=== PATIENT | male | born 1955 | race Caucasian/White ===

== ENCOUNTER 2025-01-12 01:18 | Inpatient (IN) | payer MEDICARE, BC, SELFPAY ==
[2025-01-11 21:43] VITALS: BP 153/76
[2025-01-11] MEDS: TYLENOL 650 MG PO (23:03)
[2025-01-11 23:32] LABS: Hematocrit 42.0 % (39.0-52.0); Hemoglobin 14.3 g/dL (13.0-18.0); Mean Corp Hgb Conc. 34.0 g/dL (33.0-37.0); Mean Corpuscular Volume 91.5 fL (80.0-94.0); Nucleated Red Blood Cells % 0 % (-); Platelet Count 344 10^3/uL (130-400); Red Cell Dist. Width 13.1 % (11.5-14.5)
[2025-01-11 23:48] LABS: ALT (SGPT) 40 U/L (0-50); AST (SGOT) 88 U/L (17-59); Albumin 4.5 g/dl (3.5-5.0); Alkaline Phosphatase 87 U/L (38-126); Blood Urea Nitrogen 20 mg/dl (9-20); Calcium 9.7 mg/dl (8.4-10.2); Carbon Dioxide 26 mmol/L (22-30); Chloride 98 mmol/L (98-107); Glucose 67 mg/dl (70-99); Potassium 4.7 mmol/L (3.5-5.1); Sodium 136 mmol/L (135-145); Total Protein 7.2 g/dl (6.3-8.2); eGFR > 60.00
[2025-01-11 23:50] VITALS: BMI 23.7
[2025-01-11] MEDS: NSS 1000 IV (23:50)
[2025-01-12] MEDS: ZOSYN 100 IV
[2025-01-12 00:09] LABS: C-Reactive Protein > 270.00 mg/L (0.0-10.00)
--- NOTE | 2025-01-12 00:32 | HPS.HSE ---
Family Physician
-
Family Physician: Noemí Pringle
Chief Complaint
-
Open wound infection
History of Present Illness
This is a 69-year-old with past medical history of chronic back pain, cervical and lumbar spinal surgeries, bipolar presenting to the emergency department with swelling and drainage from his left upper extremity.
Patient had a tricep tendon repair done about 2 years ago. He had no issues with this up until about July of this year when he had a drainage and a foreign body emanating from a wound in his elbow. At that time this foreign body was extricated
according to spouse. They were told that he had bursitis but she believes they had retained foreign body. Since this episode the patient has continued to have drainage from that elbow.
Starting on Thursday started having worsening drainage redness and swelling. Suppository on Thursday patient was confused. On Thursday he woke up and essentially slept throughout the day lethargic and altered. He has no subjective fevers at home
but they report that drenching sweats. He denies any trauma. He denies any animal or insect bites. He has been using a simple dressing. Spouse reported that the erythema and size of the left is about double the right. He has no history of DVTs.
Started bactrim yesterday.
In the emergency department he had a Tmax of 102.3, blood pressure was stable at 150/75 with a pulse of 120 and he was satting 98% on room air.
He has a white count of 12.5, normal hemoglobin and platelets. His electrolytes BUN and creatinine were normal.
Medical History
Past Medical History
Past Medical History: Reports Psychiatric (Bipolar)
Past Surgical History: Reports Orthopedic (Cervical spine surgery, lumbar spine surgery, left tricep tendon repair, right total knee arthroplasty, right ankle surgery)
Social History
Tobacco: Non-smoker
Alcohol: Occasional
Drug: None
Personal:
Living: With Family
Employment: Retired
Family History
Family History: Not pertinent
Allergies / Home Medications
Allergies reflects when Allergies were last updated in [facility].
Home Medications with original date entered in [facility]
Allergy/Medication List:
Allergies
Allergy/AdvReac Type Severity Reaction Status Date / Time
hydromorphone (From Dilaudid) Allergy Unknown Verified 01/11/25 21:48
Home Medications
amitriptyline 100 mg tablet 200 mg PO HS 06/21/16
gabapentin 300 mg capsule 300 mg PO HS 06/21/16
hydrocodone 10 mg-acetaminophen 325 mg tablet ([place]point) 1 ea PO QID 06/21/16
methadone 10 mg tablet 10 mg PO DAILY FOR BACK PAIN 06/21/16
tizanidine 2 mg tablet 4 mg PO HS 06/21/16
vilazodone 40 mg tablet (Viibryd) 60 mg PO DAILY 06/21/16
cariprazine 1.5 mg capsule (Vraylar) 1.5 mg PO DAILY 01/12/25
testosterone 1.62 % (20.25 mg/1.25 gram) transdermal gel packet (AndroGel) See Rx Instructions .Route .COMPLEX 01/12/25
Review of Systems
-
History Source: Patient and Family
Constitutional: Reports Chills
EENT: Reports No Symptoms
Respiratory: Reports No Symptoms
Cardiac: Reports No Symptoms
Abdomen/GI: Reports No Symptoms
: Reports No Symptoms
Musculoskeletal: Reports Joint Pain, Joint Swelling and Edema
Skin: Reports Other (Left upper extremity erythema)
Neurological: Reports No Symptoms
Endocrine: Reports No Symptoms
Hematologic/Lymphatic: Reports No Symptoms
Psych: Reports No Symptoms
Physical Exam
Vital Signs
Vital Signs
Temp Pulse Resp BP Pulse Ox
98.6 F 119 16 153/76 96
01/12/25 00:14 01/11/25 21:43 01/11/25 21:43 01/11/25 21:43 01/11/25 21:43
Physical Exam
General: Well Developed, Well Nourished and No Apparent Distress
HEENT: NormoCephalic, Moist mucous membranes and Atraumatic
Respiratory: Clear
Cardiac: S1/S2 and Regular Rhythm; No Murmur or Rub
GI: Soft, Non Tender, Non Distended and Normal Bowel Sounds; No Organomegaly
Rectal: Deferred by Provider
Musculoskeletal: No Clubbing, No Cyanosis and Edema, Left Upper Extremity
Skin: Rash (Extensive erythematous plaque starting from the mid humeral region to the mid forearm on the left upper extremity, diuresed small amount of purulence around the elbow with surrounding excoriation. There is no nodule or collection
consistent with abscess.)
Neuro: AO x 3 and Nonfocal/grossly intact
Psych: Calm
Laboratory Results
-
01/11/25 23:19
01/11/25 23:19
Laboratory Results
Lactic Acid 1.2 mmol/L (0.7-2.0) 01/11/25 23:19
Total Bilirubin 0.6 mg/dl (0.2-1.3) 01/11/25 23:19
AST 88 U/L (17-59) H 01/11/25 23:19
ALT 40 U/L (0-50) 01/11/25 23:19
Alkaline Phosphatase 87 U/L (38-126) 01/11/25 23:19
Data Reviewed
-
Ultrasound: Report Reviewed by me
Lab Data: Labs Reviewed by me
Old Records: Reviewed
Impression/Plan
-
IMPRESSION:
69-year-old with a past medical history of bipolar, chronic pain who presents to the Emergency Department with chronic left upper extremity wound did not appear to be infected. He has sepsis with fever and tachycardia. Lactic acid was not drawn.
Ultrasound pending. No foreign body. Purulent cellulitis.
PLAN:
Purulent cellulitis/abscess with sepsis
- Admit to [facility]
- Blood cultures
- no obvious abscess
- rule out DVT with u/s and eval soft tissue collection
- IV vancomycin, IV cefepime
- wound consult
- Pain control and elevate extremity
- ID consult
Chronic pain
- Continue patient's longstanding methadone
- prn hydrocodone per home regimen
- prn morphine for severe pain
Bipolar
-Continue cariprazine and vilazodone
DVT prophylaxis�Lovenox subcu
CODE STATUS�full code
[2025-01-12] MEDS: VANCOCIN 530 MG IV (01:15)
[2025-01-12 01:19] VITALS: BP 134/74
--- NOTE | 2025-01-12 01:36 | ED.GENMED ---
History of Present Illness
General
Chief Complaint: Skin Problem
Source: patient
Exam Limitations: none
Time Seen by Provider: 01/11/25 22:39
Nursing documentation reviewed up to this point in time: agreed with
History of Present Illness
History of Present Illness:
Note:
CHIEF COMPLAINT(S)
Swollen and draining arm wound.
HISTORY OF PRESENT ILLNESS
The patient is a 69-year-old male with a past surgical history of a tricep tendon repair in March two years ago by Dr. Jones at surgery center. Approximately several months post-surgery, the patient noticed a drainage coming from his arm,
described as a yellowish, greasy fluid. It required intervention and healed over a period of three months. However, recently, the wound has reopened and was significantly swollen, described visually rene to 'a club,' especially notable on a Thursday
night where a considerable amount of fluid was lost. The following day, the swelling appeared to have moved and decreased slightly but was still present. Additionally, the patient reported excessive sleepiness, sleeping from morning until 4 PM,
which is atypical for him. The patient also mentioned experiencing a knot in the arm when flexing it.
SOCIAL DETERMINANTS AFFECTING HEALTH
The patient regularly engages in fishing activities and takes trips that are approximately an hour and fifteen minutes from his home. He appears to have access to transportation for personal activities like fishing trips.
ALLERGIES
Clarithromycin causes a rash. Sulfa drugs cause hallucinations.
PHYSICAL EXAM
General: Alert, no acute distress.
Skin: Warm, dry. Draining abscess on the left elbow. Cellulitis tracking both up to the shoulder and down towards the wrist. Swelling present
Head: Normocephalic, atraumatic.
Neck: Supple, trachea midline.
Eye, Ears, Nose, Mouth, and Throat: Oral mucosa moist.
Cardiovascular: Normal peripheral perfusion, No edema.
Respiratory: Respirations are non-labored.
Gastrointestinal: Abdomen nondistended.
Back: Normal range of motion, Normal alignment.
Musculoskeletal: Normal ROM, normal strength.
Neurological: Alert and oriented to person, place, time, and situation. No focal neurological deficit observed.
Psychiatric: Cooperative, appropriate mood & affect.
PROBLEM LIST
Acute:
- Swollen and draining arm wound.
- Excessive sleepiness.
PLAN
- Admit the patient for further evaluation and treatment.
- Initiate intravenous antibiotics to address potential infection.
- Obtain an ultrasound to assess the condition of the arm.
- Consider discharge once stability and reduction of symptoms are confirmed.
DIFFERENTIAL DIAGNOSIS
The Differential Diagnosis includes, in no particular order and is not limited to:
1. Cellulitis
2. Abscess formation
3. Lymphangitis
4. Deep vein thrombosis
5. Post-surgical infection
6. Hematoma
7. Phlebitis
8. Rheumatoid arthritis flare
9. Aseptic bursitis
10. Tissue necrosis
Disposition:
SUMMARY OF ENCOUNTER
The patient is a 69-year-old male presenting with a low-grade fever, swelling, and erythema of the left elbow. He has a history of a surgical procedure to the left elbow two years ago. The patient reported intermittent swelling and discharge from
spontaneously rupturing abscesses. His symptoms worsened several days ago, leading to a cellulitis-like appearance, as noted by his , an [employer], who prescribed him an antibiotic regimen. Despite this, his symptoms did not improve significantly
and upon arrival to the emergency department, his left elbow was erythematous, draining purulence, and displayed cellulitis tracking from the shoulder down to the wrist. An ultrasound was performed and returned negative. He was started on vancomycin
and Zosyn (piperacillin and tazobactam), and admitted to the hospitalist service for further management.
DISPOSITION
Admit
ASSESSMENT
The assessment is acute cellulitis of the left elbow with no purulent drainage and systemic symptoms.
PLAN
Admit the patient to the hospitalist service for continued intravenous antibiotics (vancomycin and piperacillin-tazobactam) and further evaluation and management of his cellulitis.
INDEPENDENT REVIEW OF LABS AND INTERPRETATION OF TESTS
- My independent review of the ultrasound is negative for abscess formation.
MEDICATION RECONCILIATION
The patient was administered vancomycin and Zosyn (piperacillin and tazobactam) in the emergency department.
MEDICAL DECISION MAKING
-Complexity of Data Reviewed: Chronic conditions affecting care: History of left elbow surgery. Potential differential diagnoses considered include cellulitis, abscess formation, lymphangitis, deep vein thrombosis, post-surgical infection, hematoma,
phlebitis, rheumatoid arthritis flare, aseptic bursitis, and tissue necrosis.
-Data:
Category 1: My independent interpretation of the ultrasound imaging showed no abscess formation.
-Risk: The decision to escalate care with the administration of IV antibiotics and hospital admission was made due to the complexity and severity of the patients presenting condition.
DIAGNOSIS
1. Cellulitis of the left elbow (ICD-10: L03.113)
Past History
Past History
ED Past Medical History: Other (Chronic neck and back pain)
Social History
Tobacco: Non-smoker
Drug: None
Phy Exam
Physical Exam
Physical Exam:
.
Course
Orders/Labs/Results
Orders:
Orders
01/11/25 22:39
Urinalysis Reflex To Culture Urgent
0.9% Sodium Chloride 1000 ml [Nss] 1,000 ml IV BOLUS
Acetaminophen [Tylenol] 650 mg PO NOW STA
01/11/25 23:19
CRP [C-Reactive Protein] Urgent
Complete Blood Count/With Diff Urgent
Comprehensive Metabolic Panel Urgent
Erythrocyte Sed Rate Urgent
Lactic Acid Q4H
Comment: CANCEL 2nd LACTIC ACID IF 1st LACTIC ACID IS LESS THAN 2
Blood Culture Q30M
SAKSHI Source: Blood/Venous
Specimen Description:
Blood Culture Q30M
SAKSHI Source: Blood/Venous
Specimen Description:
01/11/25 23:42
Piperacillin/Tazo 4.5 Gram [Zosyn] 4.5 gram in 100 ml IV NOW
01/11/25 23:45
Vancomycin [Vancocin] 2,000 mg 0.9% Sodium Chloride 500 ml [Nss] 500 ml IV NOW
01/12/25 00:00
US Periph Venous UPPER Ext LT Urgent
Reason For Exam: swelling
01/12/25 00:08
Vancomycin [Vancocin] 1,500 mg 0.9% Sodium Chloride 500 ml [Nss] 500 ml IV NOW
01/12/25 00:53
Admit/Transfer Patient As Directed
Co-Sign Provider:
Level of Care: Inpatient admission
Assign to:: Medical/Surgical
Physician / Group: Dinah
Diagnosis: purulent cellulitis
Reason for Hospitalization: Purulent colitis with abscess
Expected length of stay greater than two midnights?: Yes
ELOS- Estimated Length of Stay in days: 2
I certify the patient meets the requirements for IP care: Yes
PRN Pain Medication Management As Directed
May give lesser potent ordered pain med per pt: Yes
preference::
Protocol:: Medication orders for pain may be administered in a
manner that supports deferring to patient preference
when the pt is:
- Requesting an ordered lesser potent pain medication.
Least to most potent pain medications are defined
as: acetaminophen < NSAID < tramadol < opioids
(morphine, oxycodone, hydromorphone).
- Requesting a lesser dose of the same medication IF
ORDERED.
- Requesting a less intrusive route of administration
if both routes are prescribed by the provider (PO <
IV).
01/12/25 00:54
Code Status As Directed
Resuscitation Status: Full Code
Abnormal Lab Results
01/11/25
23:19
WBC 12.5 H 10^3/uL
(4.8-10.8)
RBC 4.59 L 10^6/uL
(4.70-6.10)
MCH 31.2 H pg
(27.0-31.0)
Absolute Neuts (auto) 11.2 H 10^3/uL
(1.4-6.5)
Absolute Lymphs (auto) 0.4 L 10^3/uL
(1.2-3.4)
Absolute Monos (auto) 0.7 H 10^3/uL
(0.1-0.6)
Neutrophils % 89.9 H %
(42.2-75.2)
Lymphocytes % 3.3 L %
(20.5-51.1)
Glucose 67 L mg/dl
(70-99)
AST 88 H U/L
(17-59)
C-Reactive Protein > 270.00 H mg/L
(0.0-10.00)
01/11/25 23:19
01/11/25 23:19
Vital Signs
Initial and Last Documented VS:
Initial Vital Signs
Temp Pulse Resp BP Pulse Ox
102.3 F H 119 16 153/76 96
01/11/25 21:43 01/11/25 21:43 01/11/25 21:43 01/11/25 21:43 01/11/25 21:43
Last Documented Vital Signs
Temp Pulse Resp BP Pulse Ox
98.6 F 119 16 137/76 95
01/12/25 00:14 01/11/25 21:43 01/11/25 21:43 01/12/25 02:00 01/12/25 02:15
*Radiology
Radiology exam reviewed: radiology read reviewed (Negative for DVT)
*Pulse Oximetry
SaO2: 96
Oxygen Mode of Delivery: Room air
Patient hypoxic: no
*Critical Care Note
Total Time (30-74mins, 75-104mins- exclusive of procedures): Not Applicable
Update Note
Update Note:
NAME: FABIO MELTON
DATE OF EXAM: 01/12/2025
Patient No: [id number]
Physician: MADISON^Clarissa
Date of : 1955
Past Medical History (entered by Technologist):
Reason For Exam (entered by Technologist):
Other Notes (entered by Technologist):
Additional Information (per Vision Radiologist):
swelling, open wound forearm
Ultrasound venous Doppler left upper extremity
IMPRESSION:
Negative for DVT.
The results were faxed/finalized only at 1:34 AM ET. If you would like to discuss this case directly, please call [phone] (extension [phone]). If you can't reach me at this number, do not leave a voicemail. Please call [phone] ext [phone] and ask
for the next available Radiologist.
Pa Bermeo MD
This report has been electronically signed and verified by the Radiologist whose name is printed above.
ED Attending Note
-
Portions of this chart may have been created with voice recognition software.� Occasional wrong word or��sound alike� substitutions may have occurred due to the inherent limitations of voice recognition software.
Discharge Plan
Departure
Patient Disposition: Admit
Date of Disposition: 01/12/25
Time of Disposition: 01:39
Admit to: Telemetry
Presentation/result/management discussed w/ accepting MD/DO: Hospitalist
Discharge Problem:
Cellulitis, Sepsis
Interventions
Interventions:
*Risk Screen - Suicide Last Done: 01/11/25 21:43
*Neglect/Abuse Screening Last Done: 01/11/25 21:43
*ED- Fall Risk Assessment Last Done: 01/11/25 21:43
*ED COVID-19 Vaccine History Last Done: 01/11/25 23:51
*Nursing Disposition Last Done: 01/12/25 02:50
ED-Musculoskeletal Assessment Last Done: 01/12/25 00:14
ED- Neurological Assessment Last Done: 01/12/25 00:14
ED-Skin Assessment Last Done: 01/12/25 00:14
Discharge Date and Time
Discharge Date/Time: 01/12/25 02:51
[2025-01-12 02:00] VITALS: BP 137/76
[2025-01-12 02:50] VITALS: BP 141/79; BMI 24.4
[2025-01-12] MEDS: NSS 1000 IV (03:44)
--- NOTE | 2025-01-12 04:42 | PTCARENOTE ---
Patient admitted from ED via stretcher. Patient ambulated to bed independently. Left arm edematous, warm to touch. Dressing changed. Patient afebrile, no tachycardia. Fall precautions reviewed with patient. Call alegre within reach. Will continue to
monitor.
[2025-01-12] MEDS: MAXIPIME 1000 MG IV ×4 (05:42→23:34)
[2025-01-12 07:00] VITALS: BP 135/75
[2025-01-12] MEDS: DOLOPHINE 10 MG PO (07:28)
[2025-01-12 07:49] LABS: Hematocrit 33.5 % (39.0-52.0); Hemoglobin 11.6 g/dL (13.0-18.0); Mean Corp Hgb Conc. 34.6 g/dL (33.0-37.0); Mean Corpuscular Volume 90.3 fL (80.0-94.0); Platelet Count 275 10^3/uL (130-400); Red Cell Dist. Width 13.1 % (11.5-14.5)
[2025-01-12 08:25] LABS: Blood Urea Nitrogen 15 mg/dl (9-20); Calcium 7.7 mg/dl (8.4-10.2); Carbon Dioxide 23 mmol/L (22-30); Chloride 106 mmol/L (98-107); Estimated Creatinine Clearance 64 ml/min; Glucose 86 mg/dl (70-99); Potassium 3.8 mmol/L (3.5-5.1); Sodium 136 mmol/L (135-145); eGFR > 60.00
--- NOTE | 2025-01-12 08:41 | PHA.VAN.IN ---
Assessment
- Assessment
Renal Function: Appears similar to baseline
Concomitant Antimicrobials: cefepime
AUC Dosing Plan
- Dosing Variables
Dosing Weight (kg): 62
Dosing CrCl (ml/min): 64
Vd coefficient (L/kg): 0.7
- Empiric Dosing
Initial / Loading Dose: 1500mg - 01/12 01:15
Maintenance Regimen: Vanc 500mg Q12H starting at 1800
Estimated AUC (mcg*h/mL): 412
Estimated Peak (mcg*h/mL): 23.1
Estimated Trough (mcg/ml): 12.3
Estimated Half Life (H): 12
- Monitoring
No levels ordered at this time: consider levels in next few days
Pharmacokinetics Vancomycin I
- -
Patient Age: 69
Patient Sex: Male
Vancomycin Day #: 1
Indication: Skin And Soft Tissue
Requesting Provider: Dr. Nix
Pertinent Antimicrobial Allergies:
no pertinent antibiotic allergies
Height / Weight:
Height 5 ft 3 in
Actual Weight 62.341 kg
- Vital Signs / Lab Results
Temp Pulse Resp BP Pulse Ox
98.6 F 98 20 135/75 97
01/12/25 07:00 01/12/25 07:00 01/12/25 07:00 01/12/25 07:00 01/12/25 07:00
Lab Results - Hematology
01/11/25 01/12/25
23:19 07:14
WBC 12.5 H 9.5
Lab Results - Chemistry
01/11/25 01/12/25
23:19 07:14
BUN 20 15
Creatinine 1.1 0.9
Estimated Creat Clear 64
Albumin 4.5
01/11/25
23:19
Lactic Acid 1.2
[2025-01-12 10:29] LABS: Urine Character Clear (Clear)
--- NOTE | 2025-01-12 10:31 | WOUNDNOTE ---
[facility] RN note: Patient admitted with open wound infection.
See H&P for complete history.
PMH:
Wound Location and type/assessment: Patient admitted with purulent cellulitis and abscess. at bedside and good historian of patients past surgeries and development of wound. explained that she had been keeping elbow wrapped with GILMA and
the open area was closed in October. Recently the wound opened again and has areas of drainage and purulence. Mild erythema and edema noted from elbow to hand. Pics TT to Dr. Rees and Dr. Love. Wound cultures obtained. Patient reports increased
comfort with light compression of GILMA bandage. Heels and sacrum intact. Patient can ambulate and ate 75% of breakfast.
Pressure redistribution devices in place: Versa Care with Accumax
Plan: Wound was cleaned with Vashe and non-adherent dressing applied. Elbow was lightly wrapped with GILMA. Wound cultures sent by RN. Will confirm orders with hospitalist and update nurse. Updated care plan and will follow as needed.
Note to case management of equipment requested for discharge:
Recommend follow up at wound care center upon discharge.
--- NOTE | 2025-01-12 10:39 | WOUNDNOTE ---
LEFT ELBOW WOUND
[2025-01-12 11:06] LABS: Urine Squamous Cell 0-2 /LPF (Few)
[2025-01-12 11:08] LABS: Urine Red Blood Cell >100 /HPF (0-2)
[2025-01-12] MEDS: NON-FORMULARY ITEM 40 MG PO (11:10)
[2025-01-12] MEDS: NON-FORMULARY ITEM 20 MG PO (11:10)
[2025-01-12] MEDS: NON-FORMULARY ITEM 1.5 MG PO (11:11)
[2025-01-12] MEDS: STERILE WATER FOR INJECTION 10 ML IV ×3 (12:20→23:34)
--- NOTE | 2025-01-12 12:35 | CM ---
Alert awake oriented patient who lives with Melody in a 2 story home with 2 steps to enter and 12 steps to bed/bathroom.He is independent in driving and ADLs.Advanced directive pkg given .Offered VN he declined need.
No adaptive devices
[place] VN hx No snf hx
Pharmacy [facility]
PC Dr Pringle
PLAN Home no needs
--- NOTE | 2025-01-12 14:10 | CON.ID ---
Consultation
-
Date/Time Consultation Requested: 01/12/2025 0254
Date/Time Consultation Performed: 01/12/2025 1330
Requesting Provider: Dr. Nix
Performing Provider: Dr. Rees
Reason for Consultation: Left arm drainage
Chief Complaint / Past History
History of Present Illness
Kings Flores is a 69-year-old man with a significant past medical history of bipolar disease being evaluated at the request of Dr. Nix regarding left elbow drainage. History is obtained from chart review, along with patient interview.
Additional history is obtained from the patient's who is present at the bedside.
According to history, the patient tore his left triceps in September 2022. Ultimately he went for repair in January 2023, but during the procedure his blood pressure dropped, and ultimately he received definitive surgery in March 2023 at [facility]. In July 2023 a small area opened and what appeared to be suture material came out. The area healed by October 2023 and patient did well since that time, although he has been dealing with ongoing upper extremity edema requiring Yao wrap's.
This past week, he notes that the area became somewhat more swollen, and is now draining again. He reports the drainage is purulent with some blood in it. He denies any fevers. He notes some minor discomfort in the arm and elbow area. He denies
any axillary discomfort. He has no other wounds on the body.
Past History
Additional Past Medical History:
Bipolar disease
Additional Past Surgical History:
Cervical and lumbar laminectomy
Left tricep repair
Right TKA
Right ankle surgery
Allergy History:
hydromorphone (From Dilaudid) Allergy (Verified 01/11/25 21:48)
Unknown
Medications Reviewed: Yes
Current Antibiotics:
Vanco
Cefepime 1 q 6h
Social History
Tobacco: Non-Smoker
Alcohol: Occasional
Drug: None
Personal:
Living: With Family
Employment: Retired
Family History
Family History: Not Pertinent
Review of Systems
Vital Signs
Temp Pulse Resp BP Pulse Ox
98.6 F 98 20 135/75 97
01/12/25 07:00 01/12/25 07:00 01/12/25 07:00 01/12/25 07:00 01/12/25 07:00
Physical Exam
Physical Exam
Constitutional: No Acute Distress, Comfortable and Non-toxic
Eyes: No Conjunctival Hemorrhage and Sclera Anicteric
Oral: No Thrush and No Ulcers
Cardiovascular: Regular Rate and S1/S2; Negative S3/S4
Pulmonary: Clear; Negative Wheezes, Rales or Rhonchi
Gastrointestinal: Soft, Non Tender, Non Distended, Normal Bowel Sounds, No Rebound and No Guarding
Genito-Urinary: Negative Khalil
Extremities: Edema (LUE), Erythema (left elbow area) and Other (fluid-filled area around olecranon bursa area); Negative Cyanosis
Skin: Warm and Dry; Negative Rash or Jaundice
Wound: Other (left olecranon punctate wound.)
Neurological: Awake and Alert
Psychological: Calm
Lab / Diagnostic Study Results
01/12/25 07:14
01/12/25 07:14
Abs Immat Gran (auto) 0.0 10^3/uL (0-0.05) 01/11/25 23:19
Absolute Neuts (auto) 11.2 10^3/uL (1.4-6.5) H 01/11/25 23:19
Absolute Lymphs (auto) 0.4 10^3/uL (1.2-3.4) L 01/11/25 23:19
Absolute Monos (auto) 0.7 10^3/uL (0.1-0.6) H 01/11/25 23:19
Absolute Basos (auto) 0.1 10^3/uL (0-0.2) 01/11/25 23:19
Immature Gran % 0.3 % (0-0.5) 01/11/25 23:19
Neutrophils % 89.9 % (42.2-75.2) H 01/11/25 23:19
Lymphocytes % 3.3 % (20.5-51.1) L 01/11/25 23:19
Monocytes % 5.8 % (1.7-9.3) 01/11/25 23:19
Eosinophils % 0.2 % (0-6) 01/11/25 23:19
Basophils % 0.5 % (0-2) 01/11/25 23:19
ESR 1 mm/hour (0-20) 01/11/25 23:19
Lactic Acid 1.2 mmol/L (0.7-2.0) 01/11/25 23:19
C-Reactive Protein > 270.00 mg/L (0.0-10.00) H 01/11/25 23:19
Ur Squamous Epith Cells 0-2 /LPF (Few) 01/12/25 10:01
Microbiology Results
Micro:
01/12/25 10:30 Wound Culture - Pending
Abscess Gram Stain - Preliminary
01/12/25 10:01 Urine Culture - Pending
Urine
01/12/25 04:05 MRSA Screen - Pending
Nose
01/11/25 23:19 Blood Culture - Pending
Blood/Venous
01/11/25 23:19 Blood Culture - Pending
Blood/Venous
Assessment / Plan
Left olecranon bursa area drainage.
Left arm cellulitis
Elevated CRP (with normal ESR)
Hx bipolar disease
Recommendations:
Continue current empiric antibiotics.
Case discussed with Wound Care Nurse earlier today; culture obtained of drainage.
Orthopedics has been consulted; await further input.
Check MRI of left elbow area to assess for collection, bursitis or osteomyelitis
Care Review
Plan reviewed with: Physician (Hospitalist)
--- NOTE | 2025-01-12 14:15 | W.PN.HOSP.TC ---
Today's Communication/Plan
-
See plan
Assessment / Plan
Assessment / Plan
Impression
69-year-old with a past medical history of bipolar, chronic pain who presents to the Emergency Department with chronic left upper extremity wound did not appear to be infected. He has sepsis with fever and tachycardia. Lactic acid was not drawn.
Ultrasound pending. No foreign body. Purulent cellulitis.
Left elbow cellulitis/bursitis
Other conditions
Chronic pain
Prior history of lumbar and cervical laminectomy
Bipolar disorder
Plan
Wound culture
MRI
Orthopedic/ID consultation with consideration of I&D/washout.
Empiric antibiotics vancomycin/cefepime pending cultures.
Chronic pain
- Continue patient's longstanding methadone
- prn hydrocodone per home regimen
- prn morphine for severe pain
Bipolar
-Continue cariprazine and vilazodone
DVT prophylaxis�Lovenox subcu
CODE STATUS�full code
Anticipated Discharge: > 48 hours
Subjective/Interval History
-
Date of Service: January 12, 2025
Objective Data
-
Labs:
Laboratory Results
01/12/25
07:14
WBC 9.5
Hgb 11.6 L
Hct 33.5 L
Plt Count 275 D
Sodium 136
Potassium 3.8
Chloride 106
Carbon Dioxide 23
BUN 15
Creatinine 0.9
Glucose 86
Calcium 7.7 L D
Vital Signs:
Vital Signs
Temp Pulse Resp BP Pulse Ox
98.6 F 98 20 135/75 97
01/12/25 07:00 01/12/25 07:00 01/12/25 07:00 01/12/25 07:00 01/12/25 07:00
Physical Exam
-
General: Well Developed and No Apparent Distress
HEENT: Normocephalic, Atraumatic and Moist Mucous Membranes
Respiratory: Clear to Auscultation
Cardiac: Regular Rhythm and S1/S2; Negative Murmur, Rub or Gallop
GI: Soft, Nontender, Nondistended and Normal Bowel Sounds; Negative Organomegaly
Rectal: Deferred by Provider
Musculoskeletal: No Clubbing, No Cyanosis, No Edema and Other (Left arm/elbow area with erythema induration fluctuance proximally to the elbow)
Skin: Negative Rash
Neuro: Nonfocal/Grossly Intact
[2025-01-12 15:05] VITALS: BP 146/85
--- NOTE | 2025-01-12 15:22 | PTCARENOTE ---
Pt moved to room 331-1 for Isolation precautions of MRSA. Report given to MALIK Luu. All belongings with pt and spouse at bedside and is aware.
[2025-01-12] MEDS: VANCOCIN HCL 500 MG 100 IV (17:18)
[2025-01-12] MEDS: LOVENOX 40 MG SC (17:19)
--- NOTE | 2025-01-12 19:34 | CON.ORTHO ---
Consultation
-
Date/Time Consultation Performed: 01/12/2025 6:15 PM
Consultation - Orthopedics
History
HPI: 69-year-old male presented to the emergency department yesterday evening complaints of left foot pain and swelling wound drainage as well as subjective chills. Patient was admitted to the medical service. Orthopedics is consulted for further
evaluation and treatment. This evening patient reports that he has a remote history of left triceps tendon repair. He reports that earlier this year he began to develop subsequent spontaneous drainage and did have a suture that had to be removed
in the office from his treating orthopedic surgeon. Since that time he has had episodes of significant swelling and pain in the left elbow. Reports that this week he had spontaneous drainage of purulence from his elbow. His is an RN INTERVENTIONAL
started him on oral antibiotics with worsening symptoms including some disorientation and altered mental status.
Allergies / Home Medications
Past medical history: Bipolar, left triceps tendon rupture
Past surgical history: Cervical spine surgery, lumbar spine surgery, left triceps tendon repair, right total knee arthroplasty,
Family history: Not pertinent
Social history: Occasional alcohol use, non-smoker, lives with
Allergy/AdvReac Type Severity Reaction Status Date / Time
hydromorphone (From Dilaudid) Allergy Unknown Verified 01/11/25 21:48
�Medication �Instructions �Recorded
amitriptyline 100 mg tablet 200 mg PO HS Depression 06/21/16
gabapentin 300 mg capsule 300 mg PO HS mood/pain 06/21/16
hydrocodone 10 mg-acetaminophen 1 ea PO QID Pain 06/21/16
325 mg tablet ([place])
methadone 10 mg tablet 10 mg PO DAILY back pain 06/21/16
tizanidine 2 mg tablet 4 mg PO HS Muscle Spasms 06/21/16
vilazodone 40 mg tablet (Viibryd) 60 mg PO DAILY Depression 06/21/16
cariprazine 1.5 mg capsule 1.5 mg PO DAILY bipolar disorder 01/12/25
(Vraylar)
testosterone 1.62 % (20.25 mg/1.25 See Rx Instructions .Route 01/12/25
gram) transdermal gel packet .COMPLEX Hormonal Agent
(AndroGel)
Vital Signs / Lab Results
Temp Pulse Resp BP Pulse Ox
98.6 F 98 18 146/85 98
01/12/25 15:05 01/12/25 15:05 01/12/25 15:05 01/12/25 15:05 01/12/25 15:05
01/12/25 07:14
01/12/25 07:14
10 point review systems reviewed and negative unless otherwise stated
General: No acute distress at bedside, conversant
Musculoskeletal left upper extremity
Other significant erythema edema throughout the soft tissues of the left elbow
There is palpable fluctuance, there is expressible purulence from wound over tip of left olecranon
Patient is able to actively extend elbow against gravity with about a 20 degree extensor lag
There is moderate tenderness palpation erythematous soft tissue stable olecranon
No gross motor or sensory deficits noted distally
Diagnostic studies
None performed. Ultrasound performed emergency department negative for DVT
Assessment / Plan
69-year-old male history of left triceps tendon repair subsequent drainage now with clinical sepsis continued spontaneous purulent drainage from left elbow concerning for septic olecranon bursitis. I do long detailed discussion with the patient as
well as his regarding diagnosis and treatment options. Discussed with surgical nonsurgical options. Given patient's symptom, would recommend surgical irrigation debridement. We discussed risks benefits and alternatives to surgery. Discussed
the usual expected perioperative postoperative course. No guarantees were given. We discussed exploring the wound for any suture as well as evaluating for perhaps a rupture of his triceps tendon. Explained to them that if this was identified at
time of surgery no further intervention performed at this time given his ongoing infection. He voiced understanding and agreement with this plan. There is an MRI pending. Ideally this will be performed prior to the OR tomorrow to evaluate for any
additional soft tissue fluid collections as well as evaluate the integrity of his triceps tendon. N.p.o. at midnight. Please hold any anticoagulation in preparation for OR
Nonweightbearing left upper extremity soft dressing
N.p.o. midnight
Please hold anticoagulation
Medical management per primary team
Antibiotics per infectious disease
Follow-up MRI, would recommend hopefully obtaining this prior to the OR intervention tomorrow
Please reach out any questions or concerns. Plan: 2 OR tomorrow for I&D left elbow pending or availability medical clearance
[2025-01-12] MEDS: NORCO 7.5/325 1 TABLET PO (21:17)
[2025-01-12] MEDS: NEURONTIN 300 MG PO (21:17)
[2025-01-12] MEDS: ELAVIL 200 MG PO (21:17)
[2025-01-12] MEDS: ZANAFLEX 4 MG PO (21:17)
[2025-01-12 22:48] LABS: C-Reactive Protein 183.70 mg/L (0.0-10.00)
[2025-01-12 22:59] VITALS: BP 158/80
[2025-01-13] VITALS (12 sets, daily range): BP systolic 5–153; BP diastolic 74–86
[2025-01-13] MEDS: MAXIPIME 1000 MG IV ×3 (05:51→18:16)
[2025-01-13] MEDS: STERILE WATER FOR INJECTION 10 ML IV ×3 (05:51→18:16)
[2025-01-13] MEDS: VANCOCIN HCL 500 MG 100 IV ×2 (05:52→18:16)
--- NOTE | 2025-01-13 07:51 | W.PN.HOSP.TC ---
Today's Communication/Plan
-
MRI
OR
abx
Assessment / Plan
Assessment / Plan
Impression
69-year-old with bipolar, chronic pain p/w chronic left upper extremity wound, found to have sepsis with fever and tachycardia due to purulent Left elbow cellulitis/bursitis.
Plan
L elbow cellulitis
sepsis poa now resolved.
Wound culture pending
MRI pending
Orthopedic/ID consultation with consideration of I&D/washout. NPO for OR today
Empiric antibiotics vancomycin/cefepime pending cultures.
Chronic pain
- Continue patient's longstanding methadone
- prn hydrocodone per home regimen
- prn morphine for severe pain
Bipolar
-Continue cariprazine and vilazodone
DVT prophylaxis�Lovenox subcu, hold for OR
CODE STATUS�full code
Anticipated Discharge: 24 - 48 hours
Subjective/Interval History
-
Date of Service: January 13, 2025
Patient feeling well having a lot of swelling in his right arm. at bedside. Patient has had previous bad reaction to anesthesia, was potentially given too much sedative prior to surgery and ended up in shock requiring epinephrine and fluids.
Also has very fragile spine according to and has history of multiple laminectomies and herniated disks, and requires care when being moved onto a surgical bed.
Objective Data
-
Vital Signs:
Vital Signs
Temp Pulse Resp BP Pulse Ox
98.1 F 99 16 137/80 97
01/13/25 07:49 01/13/25 07:49 01/13/25 07:49 01/13/25 07:49 01/13/25 07:49
I&O
01/12/25 01/13/25 01/14/25
06:59 06:59 06:59
Intake Total 1060 / 1060
Balance 1060 / 1060
Review of Systems
-
All other systems: Reviewed and negative
Physical Exam
-
General: No Apparent Distress
HEENT: Moist Mucous Membranes, Anicteric and PERRLA
Respiratory: Clear to Auscultation; Negative Wheezes, Rales or Rhonchi
Cardiac: Regular Rhythm and S1/S2; Negative Murmur, Rub or Gallop
GI: Soft, Nontender, Nondistended and Normal Bowel Sounds
Musculoskeletal: Edema, Right Upper Extrem (in jaison wrap)
Skin: Warm and Dry; Negative Rash, Ulcers or Lesions
Neuro: Awake and AO x 3
Hematologic / Lymphatic: No Lymphadenopathy
Psych: Calm
Data Reviewed
-
Ultrasound: Report Reviewed by me
Labs: Labs Reviewed by me
[2025-01-13] MEDS: NON-FORMULARY ITEM 1.5 MG PO (08:23)
[2025-01-13] MEDS: NON-FORMULARY ITEM 20 MG PO (08:24)
[2025-01-13] MEDS: NON-FORMULARY ITEM 40 MG PO (08:25)
[2025-01-13] MEDS: DOLOPHINE PO (08:27)
--- NOTE | 2025-01-13 08:45 | PHA.VAN.FU ---
Addendum entered and electronically signed by Yanet Almanza [facility] 01/13/25 15:42:
BUN & SCR ordered per protocol
Original Note:
Vancomycin Assessment / Plan
- Assessment
Renal Function: No New Labs Today
In the past 24 hrs, patient has been: Afebrile
- Dosing Plan
Continue: Vanc 500mg Q12H
- Monitoring Plan
No level(s) ordered at this time: consider in next few days
- Follow Up
Pharmacy will continue to follow.
Vancomycin Follow UP
- -
Patient Age: 69
Patient Sex: Male
Vancomycin Day #: 2
Indication: Skin And Soft Tissue
Requesting Provider: Dr. Nix / Negrita
Pertinent Antimicrobial Allergies:
no pertinent antibiotic allergies
Height / Weight:
Height 5 ft 3 in
Actual Weight 62.341 kg
- Vital Signs / Lab Results
Temp Pulse Resp BP Pulse Ox
98.1 F 99 16 137/80 97
01/13/25 07:49 01/13/25 07:49 01/13/25 07:49 01/13/25 07:49 01/13/25 07:49
Lab Results - Hematology
01/11/25 01/12/25
23:19 07:14
WBC 12.5 H 9.5
Lab Results - Chemistry
01/11/25 01/12/25
23:19 07:14
BUN 20 15
Creatinine 1.1 0.9
Estimated Creat Clear 64
Albumin 4.5
01/11/25
23:19
Lactic Acid 1.2
Lab Results - Urine
01/12/25
10:01
Urine Nitrite (Reflex) Negative
Leukocyte Esterase Rfl Negative
Ur Squamous Epith Cells 0-2
Microbiology Results
01/12/25 04:05 MRSA Screen - Final
Nose No Methicillin Resistant Staphylococcus aureus isolated.
01/11/25 23:19 Blood Culture - Preliminary
Blood/Venous No Growth in 24 hours- Final report to follow
01/11/25 23:19 Blood Culture - Preliminary
Blood/Venous No Growth in 24 hours- Final report to follow
01/12/25 10:30 Gram Stain - Preliminary
Abscess
--- NOTE | 2025-01-13 15:32 | CM ---
In OR today on left elbow.
ID involved.
Maintained on IV antibiotics.
Will need therapy reorder postop .
PLAN Discharge planning on going
--- NOTE | 2025-01-13 16:53 | OR.RPT ---
Operative Report
Operative Report
Date
01/13/2025
Anesthesia Type:
General
Operative Indications:
Left elbow abscess, sepsis
Operative Findings :
Large collection of purulence posterior to the olecranon and triceps tendon remnant, full-thickness triceps tendon rupture, arthrotomy revealed no purulence or fluid within the radiocapitellar joint
Complications:
None
Implants:
None
Procedure and Technique:
Irrigation and debridement left elbow, excisional
INDICATIONS FOR PROCEDURE:
Patient 69-year-old male history of triceps tendon repair remotely with several months of drainage from his left elbow spontaneously with recent altered mental status admission for sepsis. I had a long and detailed discussion with the patient as
well as his regarding diagnosis and treatment options. We discussed postsurgical nonsurgical options. After discussion mutually did proceed with surgical intervention form of irrigation debridement left elbow. We discussed risks benefits and
alternatives to surgery. We discussed the usual expected perioperative postoperative course. No guarantees were given. After discussion written informed consent was obtained
OPERATIVE PROCEDURE:
Patient was seen identified in the preoperative holding area. Operative extremities marked. All questions were addressed and answered. He is taken to the operating room where general anesthesia was administered. He was placed in a lateral
decubitus position with a paint roller. Nonsterile tourniquet was applied. Upper extremities prepped and draped in normal sterile fashion. Timeout was performed again identifying the correct operative extremity. Preoperative antibiotics were
addressed. A previous incision was utilized approximately 14 cm in length over the posterior lateral elbow. Sharp dissection was carried through skin and subcutaneous tissues after inflating tourniquet. There is immediate evacuation of purulence.
Cultures were obtained. Skin flaps were raised. There was noted to be significant scar tissue. Full-thickness triceps tendon tear was identified. There were multiple FiberWire type sutures identified that were removed. Nonviable tissue
including subcutaneous tissue bone and tendon remnant were excisionally debrided with the use of scalpel, curette and rongeur. Tip of olecranon. Normal gross appearance. [place] sites were debrided. There were no anchors visible. There was noted
to be a small rent posterior lateral elbow in the area of the anconeus and ECU interval. This was opened and arthrotomy was performed. Attention was paid to protect lateral ulnar collateral ligament. There is no evacuation of purulence or fluid
noted within the joint. Wound was then copiously irrigated with approximately 3 L of normal saline solution. Tourniquet was deflated and there is noted to be healthy bleeding tissue. Wound was closed in layered fashion. The arthrotomy was closed
with #1 PDS suture. Deep layer was then closed with #1 PDS suture. Subcutaneous layer was closed with 2-0 PDS suture. ROSI drain was placed. Skin was closed with 3-0 nylon suture. Previous draining sinus was then ellipsed and closed with 3-0
nylon suture. Sterile dressings were applied consisting of Xeroform, 4 x 4 gauze Webril Yao bandage. Anesthesia was reversed patient was taken to PACU stable condition. Postoperative plans include nonweightbearing to the operative extremity.
Will plan to follow-up intraoperative cultures.
Disposition:
PACU stable condition
[2025-01-13] MEDS: SUBLIMAZE 50 MCG IV ×2 (17:07→17:48)
[2025-01-13] MEDS: MORPHINE SULFATE 4 MG IV (18:16)
[2025-01-13] MEDS: NSS 1000 IV (18:16)
[2025-01-13] MEDS: NORCO 7.5/325 1 TABLET PO (19:45)
[2025-01-13] MEDS: ZANAFLEX 4 MG PO (21:03)
[2025-01-13] MEDS: ELAVIL 200 MG PO (21:03)
[2025-01-13] MEDS: NEURONTIN 300 MG PO (21:03)
[2025-01-13] MEDS: DOLOPHINE 10 MG PO (22:37)
[2025-01-13] MEDS: TORADOL 15 MG IV (22:37)
[2025-01-14] MEDS: MAXIPIME 1000 MG IV ×3 (00:32→11:38)
[2025-01-14] MEDS: STERILE WATER FOR INJECTION 10 ML IV ×3 (00:32→11:38)
[2025-01-14 03:00] VITALS: BP 147/86
[2025-01-14] MEDS: NSS 1000 IV (04:56)
[2025-01-14] MEDS: VANCOCIN HCL 500 MG 100 IV (05:39)
[2025-01-14] MEDS: NORCO 7.5/325 1 TABLET PO (05:46)
[2025-01-14 07:56] VITALS: BP 145/82
[2025-01-14 07:56] LABS: Hematocrit 37.6 % (39.0-52.0); Hemoglobin 12.6 g/dL (13.0-18.0); Mean Corp Hgb Conc. 33.5 g/dL (33.0-37.0); Mean Corpuscular Volume 91.9 fL (80.0-94.0); Platelet Count 331 10^3/uL (130-400); Red Cell Dist. Width 13.4 % (11.5-14.5)
[2025-01-14] MEDS: DOLOPHINE 10 MG PO (08:05)
[2025-01-14] MEDS: NON-FORMULARY ITEM 40 MG PO (08:06)
[2025-01-14] MEDS: NON-FORMULARY ITEM 1.5 MG PO (08:07)
[2025-01-14] MEDS: NON-FORMULARY ITEM 20 MG PO (08:07)
--- NOTE | 2025-01-14 08:10 | W.PN.HOSP.TC ---
Today's Communication/Plan
-
Follow cultures
Continue IV antibiotics
Pain control
Assessment / Plan
Assessment / Plan
69-year-old with bipolar, chronic pain p/w chronic left upper extremity wound, found to have sepsis with fever and tachycardia due to purulent Left elbow cellulitis/bursitis.
L elbow abscess/cellulitis/osteomyelitis
sepsis poa now resolved. Blood cultures no growth to date
MRI shows complete rupture of distal triceps tendon repair from the olecranon tap, large abscesses posterior to triceps tendon, olecranon, proximal ulnar metaphysis, acute osteomyelitis of the olecranon, septic arthritis of the left elbow, severe
cellulitis through left elbow
Orthopedic surgery consulted�s/p OR for washout on 01/13/2025, drain placed
Follow wound culture
ID consulted
Empiric antibiotics vancomycin/cefepime pending cultures.
Triceps tendon rupture
with abscess/infection as above, s/p washout in OR
orthopedic surgery following
Chronic pain
- Continue patient's longstanding methadone
- prn hydrocodone per home regimen
- prn morphine for severe pain
prn Toradol added for acute pain
Bipolar
-Continue cariprazine and vilazodone
DVT prophylaxis�Lovenox
CODE STATUS�full code
Anticipated Discharge: 24 - 48 hours
Subjective/Interval History
-
Date of Service: January 14, 2025
having pain and asking for toradol
Objective Data
-
Labs:
Laboratory Results
01/14/25
06:44
WBC 6.7
Hgb 12.6 L
Hct 37.6 L
Plt Count 331 D
Sodium Pending
Potassium Pending
Chloride Pending
Carbon Dioxide Pending
BUN Pending
Creatinine Pending
Glucose Pending
Calcium Pending
Vital Signs:
Vital Signs
Temp Pulse Resp BP Pulse Ox
97.5 F 95 18 145/82 99
01/14/25 07:56 01/14/25 07:56 01/14/25 07:56 01/14/25 07:56 01/14/25 07:56
I&O
01/13/25 01/14/25 01/15/25
06:59 06:59 06:59
Intake Total 1060 / 1060 2139
Output Total
Balance 1060 / 1060 2109
Review of Systems
-
All other systems: Reviewed and negative
Physical Exam
-
General: No Apparent Distress
HEENT: Moist Mucous Membranes, Anicteric and PERRLA
Respiratory: Clear to Auscultation; Negative Wheezes, Rales or Rhonchi
Cardiac: Regular Rhythm and S1/S2; Negative Murmur, Rub or Gallop
GI: Soft, Nontender, Nondistended and Normal Bowel Sounds
Musculoskeletal: Edema, Right Upper Extrem (in jaison wrap)
Skin: Warm and Dry; Negative Rash, Ulcers or Lesions
Neuro: Awake and AO x 3
Hematologic / Lymphatic: No Lymphadenopathy
Psych: Calm
Data Reviewed
-
MRI: Report Reviewed by me
Labs: Labs Reviewed by me
[2025-01-14 08:35] LABS: Blood Urea Nitrogen 12 mg/dl (9-20); Calcium 8.1 mg/dl (8.4-10.2); Carbon Dioxide 26 mmol/L (22-30); Chloride 105 mmol/L (98-107); Estimated Creatinine Clearance 82 ml/min; Glucose 174 mg/dl (70-99); Potassium 5.0 mmol/L (3.5-5.1); Sodium 137 mmol/L (135-145); eGFR > 60.00
--- NOTE | 2025-01-14 08:59 | PHA.VAN.FU ---
Vancomycin Assessment / Plan
- Assessment
Renal Function: SCR Decreasing
WBC's are: WNL
In the past 24 hrs, patient has been: Afebrile
Concomitant Antimicrobials: cefepime
- Dosing Plan
Adjust Regimen to: Vanc 750mg Q12H starting at 1800
New Regimen Predicts: AUC (494), Peak (29.8), Trough (13.4)
Dosing Comments: increasing dose for decreased SCR
- Monitoring Plan
No level(s) ordered at this time: consider levels in next few days
- Follow Up
Pharmacy will continue to follow.
Vancomycin Follow UP
- -
Patient Age: 69
Patient Sex: Male
Vancomycin Day #: 3
Indication: Skin And Soft Tissue
Requesting Provider: Dr. Nix / Negrita
Pertinent Antimicrobial Allergies:
no pertinent antibiotic allergies
Height / Weight:
Height 5 ft 3 in
Actual Weight 62.341 kg
- Vital Signs / Lab Results
Temp Pulse Resp BP Pulse Ox
97.5 F 95 18 145/82 99
01/14/25 07:56 01/14/25 07:56 01/14/25 07:56 01/14/25 07:56 01/14/25 07:56
Lab Results - Hematology
01/11/25 01/12/25 01/14/25
23:19 07:14 06:44
WBC 12.5 H 9.5 6.7
Lab Results - Chemistry
01/11/25 01/12/25 01/14/25
23:19 07:14 06:44
BUN 20 15 12
Creatinine 1.1 0.9 0.7
Estimated Creat Clear 64 82
Albumin 4.5
01/11/25
23:19
Lactic Acid 1.2
Microbiology Results
01/11/25 23:19 Blood Culture - Preliminary
Blood/Venous No Growth in 48 hours- Final report to follow
01/11/25 23:19 Blood Culture - Preliminary
Blood/Venous No Growth in 48 hours- Final report to follow
01/13/25 16:15 Gram Stain - Preliminary
Elbow - Left
01/12/25 10:30 Wound Culture - Preliminary
Abscess Gram Stain - Preliminary
01/12/25 10:01 Urine Culture - Final
Urine NO GROWTH
01/12/25 04:05 MRSA Screen - Final
Nose No Methicillin Resistant Staphylococcus aureus isolated.
[2025-01-14] MEDS: TORADOL 15 MG IV ×2 (09:21→22:06)
[2025-01-14] MEDS: FLUSH (NSS) 2 FLUSH IV ×3 (09:24→17:07)
--- NOTE | 2025-01-14 09:25 | W.PN.UPDATE ---
Update Note
Progress Note Update
Requested by Dr. Hearn to remove drain this AM
Completed
GGMD
[2025-01-14 10:50] VITALS: BP 137/85
[2025-01-14 15:55] VITALS: BP 148/73
[2025-01-14] MEDS: MORPHINE SULFATE 4 MG IV (17:05)
[2025-01-14] MEDS: VANCOCIN 150 IV (17:07)
--- NOTE | 2025-01-14 17:47 | W.PN.ID1 ---
Date of Service
Date of Service: January 14, 2025
Today's Communication
Continue Vancomycin.
Assessment / Plan
Left olecranon osteomyelitis and abscess
Left arm cellulitis
Elevated CRP (with normal ESR)
Hx bipolar disease
Recommendations:
01/13/25 s/p OR I+D of large collection of purulence posterior to the olecranon and triceps tendon remnant; excisional debridement of nonviable bone and tendon remnant
OR cx: Staph aureus
DC cefepime.
Continue Vancomycin pending sensitivity.
Chief Complaint
-: Other (left olecranon osteo)
Subjective / Review of Systems
at bedside. No new complaints.
Vital Signs / Physical Exam
Vital Signs
Vital Signs
Temp Pulse Resp BP Pulse Ox
98.0 F 99 17 148/73 98
01/14/25 15:55 01/14/25 15:55 01/14/25 15:55 01/14/25 15:55 01/14/25 15:55
Physical Exam
Constitutional: No Acute Distress
Cardiovascular: Regular Rate and S1/S2
Gastrointestinal: Soft, Non Tender, Non Distended and Normal Bowel Sounds
Wound: Other (left elbow dressing dry)
Neurological: AO x 3
Objective Data
Lab Data
Lab Results
01/14/25 06:44
01/14/25 06:44
ESR 1 mm/hour (0-20) 01/11/25 23:19
Estimated Creat Clear 82 ml/min 01/14/25 06:44
Lactic Acid 1.2 mmol/L (0.7-2.0) 01/11/25 23:19
Total Bilirubin 0.6 mg/dl (0.2-1.3) 01/11/25 23:19
AST 88 U/L (17-59) H 01/11/25 23:19
ALT 40 U/L (0-50) 01/11/25 23:19
Alkaline Phosphatase 87 U/L (38-126) 01/11/25 23:19
C-Reactive Protein 183.70 mg/L (0.0-10.00) H 01/12/25 21:38
Most recent labs reviewed.
Micro Results:
01/13/25 16:15 Anaerobic Culture - Preliminary
Elbow - Left Culture pending. Anaerobic cultures are examined after 3
days incubation. Additional information to follow.
01/13/25 16:15 Wound Culture - Preliminary
Elbow - Left Staphylococcus aureus
Gram Stain - Preliminary
01/12/25 10:30 Wound Culture - Preliminary
Abscess Staphylococcus aureus
Gram Stain - Preliminary
01/11/25 23:19 Blood Culture - Preliminary
Blood/Venous No Growth in 48 hours- Final report to follow
01/11/25 23:19 Blood Culture - Preliminary
Blood/Venous No Growth in 48 hours- Final report to follow
01/12/25 10:01 Urine Culture - Final
Urine NO GROWTH
01/12/25 04:05 MRSA Screen - Final
Nose No Methicillin Resistant Staphylococcus aureus isolated.
01/13/25 MRI LUE:
1. COMPLETE RUPTURE of the DISTAL TRICEPS TENDON REPAIR from the olecranon attachment.
2. 5.0 cm ABSCESS posterior to the triceps tendon.
3. 2.7 cm ABSCESS posterior to the olecranon (extending anteriorly into the elbow joint).
4. 2.3 cm ABSCESS posterior to the proximal ulnar metaphysis.
5. ACUTE OSTEOMYELITIS of the OLECRANON.
6. SEPTIC ARTHRITIS of the left elbow.
[2025-01-14 19:30] VITALS: BP 130/80
[2025-01-14] MEDS: NEURONTIN 300 MG PO (22:01)
[2025-01-14] MEDS: ELAVIL 200 MG PO (22:01)
[2025-01-14] MEDS: ZANAFLEX 4 MG PO (22:02)
[2025-01-14 23:24] VITALS: BP 139/69
[2025-01-15] MEDS: NORCO 7.5/325 1 TABLET PO ×2 (01:22→20:13)
[2025-01-15] MEDS: VANCOCIN 150 IV (06:38)
[2025-01-15 07:00] VITALS: BP 133/73
[2025-01-15 07:51] LABS: Hematocrit 34.7 % (39.0-52.0); Hemoglobin 11.6 g/dL (13.0-18.0); Mean Corp Hgb Conc. 33.4 g/dL (33.0-37.0); Mean Corpuscular Volume 92.5 fL (80.0-94.0); Nucleated Red Blood Cells % 0 % (-); Platelet Count 315 10^3/uL (130-400); Red Cell Dist. Width 13.6 % (11.5-14.5)
[2025-01-15 08:15] LABS: Blood Urea Nitrogen 14 mg/dl (9-20); Calcium 8.5 mg/dl (8.4-10.2); Carbon Dioxide 29 mmol/L (22-30); Chloride 107 mmol/L (98-107); Estimated Creatinine Clearance 64 ml/min; Glucose 97 mg/dl (70-99); Potassium 4.6 mmol/L (3.5-5.1); Sodium 139 mmol/L (135-145); eGFR > 60.00
[2025-01-15] MEDS: NON-FORMULARY ITEM 1.5 MG PO (08:22)
[2025-01-15] MEDS: DOLOPHINE 10 MG PO (08:23)
[2025-01-15] MEDS: NON-FORMULARY ITEM PO (08:23)
--- NOTE | 2025-01-15 08:25 | W.PN.HOSP.TC ---
Today's Communication/Plan
-
MSSA in wound cx
Continue IV antibiotics changed to cefazolin
Pain control
Assessment / Plan
Assessment / Plan
69-year-old with bipolar, chronic pain p/w chronic left upper extremity wound, found to have sepsis with fever and tachycardia due to purulent Left elbow cellulitis/bursitis.
L elbow abscess/cellulitis/osteomyelitis
sepsis poa now resolved. Blood cultures no growth to date. Wound cultures positive MSSA .
MRI shows complete rupture of distal triceps tendon repair from the olecranon tap, large abscesses posterior to triceps tendon, olecranon, proximal ulnar metaphysis, acute osteomyelitis of the olecranon, septic arthritis of the left elbow, severe
cellulitis through left elbow
Orthopedic surgery consulted�s/p OR for washout on 01/13/2025, drain removed
ID consulted
Antibiotics changed to cefazolin.
Triceps tendon rupture
with abscess/infection as above, s/p washout in OR
orthopedic surgery following
Chronic pain
- Continue patient's longstanding methadone
- prn hydrocodone per home regimen
- prn morphine for severe pain
prn Toradol added for acute pain
Bipolar
-Continue cariprazine and vilazodone
DVT prophylaxis�Lovenox
CODE STATUS�full code
Anticipated Discharge: 24 - 48 hours
Subjective/Interval History
-
Date of Service: January 15, 2025
Pain controlled with current med regimen
Objective Data
-
Labs:
Laboratory Results
01/15/25
07:24
WBC 4.6 L
Hgb 11.6 L
Hct 34.7 L
Plt Count 315
Sodium 139
Potassium 4.6
Chloride 107
Carbon Dioxide 29
BUN 14
Creatinine 0.9
Glucose 97
Calcium 8.5
Vital Signs:
Vital Signs
Temp Pulse Resp BP Pulse Ox
97.6 F 83 18 133/73 99
01/15/25 07:00 01/15/25 07:00 01/15/25 07:00 01/15/25 07:00 01/15/25 07:00
I&O
01/14/25 01/15/25 01/16/25
06:59 06:59 06:59
Intake Total 2139 / 2139 1220 / 1220
Output Total
Balance 2109 1220 / 1220
Review of Systems
-
All other systems: Reviewed and negative
Physical Exam
-
General: No Apparent Distress
HEENT: Moist Mucous Membranes, Anicteric and PERRLA
Respiratory: Clear to Auscultation; Negative Wheezes, Rales or Rhonchi
Cardiac: Regular Rhythm and S1/S2; Negative Murmur, Rub or Gallop
GI: Soft, Nontender, Nondistended and Normal Bowel Sounds
Musculoskeletal: Edema, Right Upper Extrem (in jaison wrap)
Skin: Warm and Dry; Negative Rash, Ulcers or Lesions
Neuro: Awake and AO x 3
Hematologic / Lymphatic: No Lymphadenopathy
Psych: Calm
Data Reviewed
-
MRI: Report Reviewed by me
Labs: Labs Reviewed by me
[2025-01-15] MEDS: NON-FORMULARY ITEM 20 MG PO (08:31)
[2025-01-15] MEDS: NON-FORMULARY ITEM 40 MG PO (08:31)
[2025-01-15] MEDS: TORADOL 15 MG IV ×2 (12:30→18:48)
--- NOTE | 2025-01-15 13:05 | W.PN.ID1 ---
Date of Service
Date of Service: January 15, 2025
Today's Communication
Replace Vancomycin with cefazolin.
Assessment / Plan
Left olecranon osteomyelitis and abscess
Left arm cellulitis
Elevated CRP (with normal ESR)
Hx bipolar disease
Recommendations:
01/13/25 s/p OR I+D of large collection of purulence posterior to the olecranon and triceps tendon remnant; excisional debridement of nonviable bone and tendon remnant
OR cx: Staph aureus (MSSA)
DC Vancomycin.
Start cefazolin 2g IV q8h.
Recommend 6 weeks of IV abx.
Pt declines PICC at this time. He will be at the [facility] x 16 day, starting 01/20. He plans to be very active, rafting, etc.
Will re-address conundrum tomorrow.
Chief Complaint
-: Other (left olecranon osteo)
Subjective / Review of Systems
No new complaints.
Vital Signs / Physical Exam
Vital Signs
Vital Signs
Temp Pulse Resp BP Pulse Ox
97.6 F 83 18 133/73 99
01/15/25 07:00 01/15/25 07:00 01/15/25 07:00 01/15/25 07:00 01/15/25 07:00
Physical Exam
Constitutional: No Acute Distress
Pulmonary: Clear
Gastrointestinal: Soft, Non Tender and Non Distended
Extremities: Edema (LUE)
Musculoskeletal: Other (left elbow dressing dry)
Neurological: AO x 3
Objective Data
Lab Data
Lab Results
01/15/25 07:24
01/15/25 07:24
ESR 1 mm/hour (0-20) 01/11/25 23:19
Estimated Creat Clear 64 ml/min 01/15/25 07:24
Lactic Acid 1.2 mmol/L (0.7-2.0) 01/11/25 23:19
Total Bilirubin 0.6 mg/dl (0.2-1.3) 01/11/25 23:19
AST 88 U/L (17-59) H 01/11/25 23:19
ALT 40 U/L (0-50) 01/11/25 23:19
Alkaline Phosphatase 87 U/L (38-126) 01/11/25 23:19
C-Reactive Protein 183.70 mg/L (0.0-10.00) H 01/12/25 21:38
Most recent labs reviewed.
Micro Results:
01/13/25 16:15 Wound Culture - Preliminary
Elbow - Left S aureus-Methicillin Sensitive
Gram Stain - Preliminary
01/12/25 10:30 Wound Culture - Final
Abscess S aureus-Methicillin Sensitive
Gram Stain - Final
01/11/25 23:19 Blood Culture - Preliminary
Blood/Venous No Growth in 72 hours- Final report to follow
01/11/25 23:19 Blood Culture - Preliminary
Blood/Venous No Growth in 72 hours- Final report to follow
01/13/25 16:15 Anaerobic Culture - Preliminary
Elbow - Left Culture pending. Anaerobic cultures are examined after 3
days incubation. Additional information to follow.
01/12/25 10:01 Urine Culture - Final
Urine NO GROWTH
01/12/25 04:05 MRSA Screen - Final
Nose No Methicillin Resistant Staphylococcus aureus isolated.
01/13/25 MRI LUE:
1. COMPLETE RUPTURE of the DISTAL TRICEPS TENDON REPAIR from the olecranon attachment.
2. 5.0 cm ABSCESS posterior to the triceps tendon.
3. 2.7 cm ABSCESS posterior to the olecranon (extending anteriorly into the elbow joint).
4. 2.3 cm ABSCESS posterior to the proximal ulnar metaphysis.
5. ACUTE OSTEOMYELITIS of the OLECRANON.
6. SEPTIC ARTHRITIS of the left elbow.
[2025-01-15] MEDS: ANCEF 10 IV ×2 (13:39→22:15)
[2025-01-15 15:00] VITALS: BP 152/84
[2025-01-15] MEDS: ZANAFLEX 4 MG PO (22:14)
[2025-01-15] MEDS: NEURONTIN 300 MG PO (22:14)
[2025-01-15] MEDS: ELAVIL 200 MG PO (22:14)
--- NOTE | 2025-01-15 22:52 | PTCARENOTE ---
2250-INSECTICIDE MIXER notified during rounds of Gram neg blood cx result.
[2025-01-15 23:00] VITALS: BP 138/59
[2025-01-16] MEDS: ANCEF 10 IV ×3 (05:39→21:16)
[2025-01-16 06:40] LABS: Hematocrit 35.3 % (39.0-52.0); Hemoglobin 11.6 g/dL (13.0-18.0); Mean Corp Hgb Conc. 32.9 g/dL (33.0-37.0); Mean Corpuscular Volume 93.1 fL (80.0-94.0); Nucleated Red Blood Cells % 0 % (-); Platelet Count 345 10^3/uL (130-400); Red Cell Dist. Width 13.6 % (11.5-14.5)
[2025-01-16 06:59] LABS: Blood Urea Nitrogen 12 mg/dl (9-20); Calcium 8.2 mg/dl (8.4-10.2); Carbon Dioxide 30 mmol/L (22-30); Chloride 106 mmol/L (98-107); Estimated Creatinine Clearance 72 ml/min; Glucose 80 mg/dl (70-99); Potassium 4.3 mmol/L (3.5-5.1); Sodium 140 mmol/L (135-145); eGFR > 60.00
[2025-01-16 07:00] VITALS: BP 140/71
[2025-01-16] MEDS: DOLOPHINE 10 MG PO (07:35)
[2025-01-16] MEDS: NON-FORMULARY ITEM 20 MG PO (07:35)
[2025-01-16] MEDS: NON-FORMULARY ITEM 1.5 MG PO (07:36)
[2025-01-16] MEDS: NON-FORMULARY ITEM 40 MG PO (07:37)
[2025-01-16] MEDS: TORADOL 15 MG IV ×3 (07:57→22:44)
--- NOTE | 2025-01-16 12:29 | W.PN.ID1 ---
Date of Service
Date of Service: January 16, 2025
Today's Communication
Continue abx.
Assessment / Plan
Left olecranon osteomyelitis and abscess
Left arm cellulitis
Elevated CRP (with normal ESR)
Hx bipolar disease
Recommendations:
01/13/25 s/p OR I+D of large collection of purulence posterior to the olecranon and triceps tendon remnant; excisional debridement of nonviable bone and tendon remnant
OR cx: Staph aureus (MSSA)
Continue cefazolin 2g IV q8h for 6 weeks (through 02/24/2025)
Prescription given to Case management
PICC line ordered.
Will follow in office in 3 weeks time.
����������������������������������������������������������
Chief Complaint
-: Other (left olecranon osteo)
Subjective / Review of Systems
Review of Systems: No Fever and No Chills
Vital Signs / Physical Exam
Vital Signs
Vital Signs
Temp Pulse Resp BP Pulse Ox
98.0 F 74 18 140/71 99
01/16/25 07:00 01/16/25 07:00 01/16/25 07:00 01/16/25 07:00 01/16/25 07:00
Physical Exam
Constitutional: No Acute Distress
Eyes: Sclera Anicteric
Cardiovascular: S1/S2; Negative S3/S4
Pulmonary: Clear and Non Labored
Gastrointestinal: Soft, Non Tender and Non Distended
Extremities: Edema (LUE); Negative Cyanosis
Musculoskeletal: Other (left elbow dressing dry)
Neurological: AO x 3
Objective Data
Lab Data
Lab Results
01/16/25 06:01
01/16/25 06:01
ESR 1 mm/hour (0-20) 01/11/25 23:19
Estimated Creat Clear 72 ml/min 01/16/25 06:01
Lactic Acid 1.2 mmol/L (0.7-2.0) 01/11/25 23:19
Total Bilirubin 0.6 mg/dl (0.2-1.3) 01/11/25 23:19
AST 88 U/L (17-59) H 01/11/25 23:19
ALT 40 U/L (0-50) 01/11/25 23:19
Alkaline Phosphatase 87 U/L (38-126) 01/11/25 23:
C-Reactive Protein 183.70 mg/L (0.0-10.00) H 01/12/25 21:38
Most recent labs reviewed.
Micro Results:
01/11/25 23:19 Blood Culture - Preliminary
Blood/Venous No Growth in 4 days- Final report to follow
01/11/25 23:19 Blood Culture - Preliminary
Blood/Venous No Growth in 4 days- Final report to follow
01/13/25 16:15 Wound Culture - Preliminary
Elbow - Left S aureus-Methicillin Sensitive
Gram Stain - Preliminary
01/12/25 10:30 Wound Culture - Final
Abscess S aureus-Methicillin Sensitive
Gram Stain - Final
01/13/25 16:15 Anaerobic Culture - Preliminary
Elbow - Left Culture pending. Anaerobic cultures are examined after 3
days incubation. Additional information to follow.
01/12/25 10:01 Urine Culture - Final
Urine NO GROWTH
01/12/25 04:05 MRSA Screen - Final
Nose No Methicillin Resistant Staphylococcus aureus isolated.
01/13/25 MRI LUE:
1. COMPLETE RUPTURE of the DISTAL TRICEPS TENDON REPAIR from the olecranon attachment.
2. 5.0 cm ABSCESS posterior to the triceps tendon.
3. 2.7 cm ABSCESS posterior to the olecranon (extending anteriorly into the elbow joint).
4. 2.3 cm ABSCESS posterior to the proximal ulnar metaphysis.
5. ACUTE OSTEOMYELITIS of the OLECRANON.
6. SEPTIC ARTHRITIS of the left elbow.
Care Review
Plan reviewed with: Physician (Hospitalist)
--- NOTE | 2025-01-16 12:48 | W.PN.HOSP.TC ---
Today's Communication/Plan
-
Continue cefazolin 2g IV q8h for 6 weeks (through 02/24/2025)
PICC line order placed
DC ready - CM aware - have to plan Abx delivery and education
Assessment / Plan
Assessment / Plan
69-year-old with bipolar, chronic pain p/w chronic left upper extremity wound, found to have sepsis with fever and tachycardia due to purulent Left elbow cellulitis/bursitis.
L elbow abscess/cellulitis/osteomyelitis
sepsis poa now resolved. Blood cultures no growth to date. Wound cultures positive MSSA .
MRI shows complete rupture of distal triceps tendon repair from the olecranon tap, large abscesses posterior to triceps tendon, olecranon, proximal ulnar metaphysis, acute osteomyelitis of the olecranon, septic arthritis of the left elbow, severe
cellulitis through left elbow
Orthopedic surgery consulted�s/p OR for washout on 01/13/2025, drain removed
ID consulted
Antibiotics changed to cefazolin.
Continue cefazolin 2g IV q8h for 6 weeks (through 02/24/2025)
F/u ID in 3 weeks
PICC line order placed; patient and advised and not limited to avoid use of jacuzzi, submerging in water and participate in active sports/activities, requiring extensive arm use or predisposing him to infection or PICC line dislodgement
Triceps tendon rupture
with abscess/infection as above, s/p washout in OR
orthopedic surgery following
Chronic pain
- Continue patient's longstanding methadone
- prn hydrocodone per home regimen
- prn morphine for severe pain
prn Toradol added for acute pain
Bipolar
-Continue cariprazine and vilazodone
DVT prophylaxis�Lovenox
CODE STATUS�full code
More than 30 minutes spent in discharge including
Final examination of the patient
Summarizing hospital stay
Instructions for continuing care to all relevant caregivers
Preparation of discharge records, prescriptions, and referral forms
Total time spent (in minutes): 36
Anticipated Discharge: Today
Subjective/Interval History
-
Date of Service: January 16, 2025
No acute events overnight, amenable to PICC line now
Objective Data
-
Labs:
Laboratory Results
01/16/25
06:01
WBC 4.7 L
Hgb 11.6 L
Hct 35.3 L
Plt Count 345
Sodium 140
Potassium 4.3
Chloride 106
Carbon Dioxide 30
BUN 12
Creatinine 0.8
Glucose 80
Calcium 8.2 L
Vital Signs:
Vital Signs
Temp Pulse Resp BP Pulse Ox
98.0 F 74 18 140/71 99
01/16/25 07:00 01/16/25 07:00 01/16/25 07:00 01/16/25 07:00 01/16/25 07:00
I&O
01/15/25 01/16/25 01/17/25
06:59 06:59 06:59
Intake Total 1220 / 1220 1060 / 1060
Balance 1220 / 1220 1060 / 1060
Review of Systems
-
History Source: Patient
All other systems: Not reviewed unless documented
Physical Exam
-
General: No Apparent Distress
HEENT: Moist Mucous Membranes, Anicteric and PERRLA
Respiratory: Clear to Auscultation; Negative Wheezes, Rales or Rhonchi
Cardiac: Regular Rhythm and S1/S2; Negative Murmur, Rub or Gallop
GI: Soft, Nontender, Nondistended and Normal Bowel Sounds
Musculoskeletal: Other (Left arm wrapped in Yao bandage)
Skin: Warm and Dry; Negative Rash, Ulcers or Lesions
Neuro: Awake and AO x 3
Hematologic / Lymphatic: No Lymphadenopathy
Psych: Calm
Data Reviewed
-
MRI: Report Reviewed by me
Labs: Labs Reviewed by me
--- NOTE | 2025-01-16 14:49 | CM ---
ID provided IV antibiotic script . Spoke with pt and in room .
They requested [facility].
Spoke with Narda and Sammie at [facility] [phone] Script and clinical faxed to [phone] .
Sammie [facility] confirmed receiving clinical. Pt contacted about out of pocket costs.
Sammie confirmed patient SOC tomorrow in home with [facility] at 2 pm.
Melody [phone] home.
IMM reviewed signed on chart.
Pt need PICC and CXR faxed to [phone] after completion.
PLAN Home with [facility] fax [phone]
Fax Picc line and CXR prior to dc.
[2025-01-16 15:00] VITALS: BP 143/76
[2025-01-16] MEDS: LOVENOX 40 MG SC (18:25)
[2025-01-16] MEDS: NEURONTIN 300 MG PO (21:16)
[2025-01-16] MEDS: ZANAFLEX 4 MG PO (21:16)
[2025-01-16] MEDS: ELAVIL 200 MG PO (21:16)
[2025-01-16] MEDS: NORCO 7.5/325 1 TABLET PO (21:23)
[2025-01-16 23:58] VITALS: BP 156/74
[2025-01-17] MEDS: ANCEF 10 IV (05:56)
[2025-01-17 06:12] LABS: Hematocrit 38.1 % (39.0-52.0); Hemoglobin 12.6 g/dL (13.0-18.0); Mean Corp Hgb Conc. 33.1 g/dL (33.0-37.0); Mean Corpuscular Volume 92.0 fL (80.0-94.0); Platelet Count 384 10^3/uL (130-400); Red Cell Dist. Width 13.2 % (11.5-14.5)
[2025-01-17 06:44] LABS: Blood Urea Nitrogen 18 mg/dl (9-20); Calcium 8.9 mg/dl (8.4-10.2); Carbon Dioxide 30 mmol/L (22-30); Chloride 105 mmol/L (98-107); Estimated Creatinine Clearance 64 ml/min; Glucose 91 mg/dl (70-99); Potassium 4.9 mmol/L (3.5-5.1); Sodium 138 mmol/L (135-145); eGFR > 60.00
[2025-01-17 07:00] VITALS: BP 179/84
[2025-01-17] MEDS: NON-FORMULARY ITEM 20 MG PO (08:55)
[2025-01-17] MEDS: NON-FORMULARY ITEM 1.5 MG PO (08:56)
[2025-01-17] MEDS: NON-FORMULARY ITEM 40 MG PO (08:56)
[2025-01-17] MEDS: NORCO 7.5/325 1 TABLET PO (08:59)
[2025-01-17] MEDS: DOLOPHINE 10 MG PO (08:59)
--- NOTE | 2025-01-17 11:21 | CM ---
Addendum entered by Kira Lopez RN 01/17/25 11:53:
Jennifer [facility] requested papaer script for patients weekly labs >MD notified.
Original Note:
MD indicated patient ready for discharge today
Spoke with [facility] intake she confirmed that all clinical received and SOC 2 pm today at patient's home.
Spoke with Melody [phone] patient home.
PICC and CXR faxed to [phone] this am
PLAN Home with [facility] fax [phone]
--- NOTE | 2025-01-17 11:59 | W.PN.HOSP.TC ---
Addendum entered and electronically signed by French Webb MD 01/17/25 15:56:
[id number]
Original Note:
Today's Communication/Plan
-
Continue cefazolin 2g IV q8h for 6 weeks (through 02/24/2025)
PICC line order placed
F/u ID, Ortho, PCP outpt
labs outpatient with ID
Assessment / Plan
Assessment / Plan
69-year-old with bipolar, chronic pain p/w chronic left upper extremity wound, found to have sepsis with fever and tachycardia due to purulent Left elbow cellulitis/bursitis.
L elbow abscess/cellulitis/osteomyelitis
sepsis poa now resolved. Blood cultures no growth to date. Wound cultures positive MSSA .
MRI shows complete rupture of distal triceps tendon repair from the olecranon tap, large abscesses posterior to triceps tendon, olecranon, proximal ulnar metaphysis, acute osteomyelitis of the olecranon, septic arthritis of the left elbow, severe
cellulitis through left elbow
Orthopedic surgery consulted�s/p OR for washout on 01/13/2025, drain removed
ID consulted
Antibiotics changed to cefazolin.
Continue cefazolin 2g IV q8h for 6 weeks (through 02/24/2025)
F/u ID in 3 weeks
PICC line order placed; patient and advised and not limited to avoid use of jacuzzi, submerging in water and participate in active sports/activities, requiring extensive arm use or predisposing him to infection or PICC line dislodgement
Triceps tendon rupture
with abscess/infection as above, s/p washout in OR
orthopedic surgery following
Chronic pain
- Continue patient's longstanding methadone
- prn hydrocodone per home regimen
- prn morphine for severe pain
prn Toradol added for acute pain
Bipolar
-Continue cariprazine and vilazodone
DVT prophylaxis�Lovenox
CODE STATUS�full code
More than 30 minutes spent in discharge including
Final examination of the patient
Summarizing hospital stay
Instructions for continuing care to all relevant caregivers
Preparation of discharge records, prescriptions, and referral forms
Total time spent (in minutes): 36
Anticipated Discharge: Today
Subjective/Interval History
-
Date of Service: January 17, 2025
no acute events
Objective Data
-
Labs:
Laboratory Results
01/17/25
05:54
WBC 5.8
Hgb 12.6 L
Hct 38.1 L
Plt Count 384
Sodium 138
Potassium 4.9
Chloride 105
Carbon Dioxide 30
BUN 18
Creatinine 0.9
Glucose 91
Calcium 8.9
Vital Signs:
Vital Signs
Temp Pulse Resp BP Pulse Ox
97.9 F 74 19 179/84 99
01/17/25 07:00 01/17/25 07:00 01/17/25 07:00 01/17/25 07:00 01/17/25 09:15
I&O
01/16/25 01/17/25 01/18/25
06:59 06:59 06:59
Intake Total 1060 / 1060 2039
Balance 1060 / 1060 2039
Review of Systems
-
History Source: Patient
All other systems: Not reviewed unless documented
Physical Exam
-
General: No Apparent Distress
HEENT: Moist Mucous Membranes, Anicteric and PERRLA
Respiratory: Clear to Auscultation; Negative Wheezes, Rales or Rhonchi
Cardiac: Regular Rhythm and S1/S2; Negative Murmur, Rub or Gallop
GI: Soft, Nontender, Nondistended and Normal Bowel Sounds
Musculoskeletal: Other (Left arm wrapped in Yao bandage)
Skin: Warm and Dry; Negative Rash, Ulcers or Lesions
Neuro: Awake and AO x 3
Hematologic / Lymphatic: No Lymphadenopathy
Psych: Calm
Data Reviewed
-
MRI: Report Reviewed by me
Labs: Labs Reviewed by me
--- NOTE | 2025-01-17 12:04 | W.DS.TRANS ---
DC Summary - Customer Service Clerk
-
Discharge Instructions:
Discharge Diagnosis/Procedures Left olecranon osteomyelitis and abscess
Left arm cellulitis
Diet Low Cholesterol,Low Fat
Activity As tolerated
Blood Work BMP , CBC with diff, ESR , CRP within 1 week
with PCP
Others Tests as per ID, Orthopedics outpatient
Instructions:
Stand-Alone Forms:
Changes to Home Medications: Yes
Discharge Medications:
DC Medications w/original date entered in [employer]
amitriptyline 100 mg tablet 200 mg PO HS Depression 06/21/16
gabapentin 300 mg capsule 300 mg PO HS mood/pain 06/21/16
hydrocodone 10 mg-acetaminophen 325 mg tablet ([place]) 1 ea PO QID Pain 06/21/16
methadone 10 mg tablet 10 mg PO DAILY back pain 06/21/16
tizanidine 2 mg tablet 4 mg PO HS Muscle Spasms 06/21/16
vilazodone 40 mg tablet (Viibryd) 60 mg PO DAILY Depression 06/21/16
cariprazine 1.5 mg capsule (Vraylar) 1.5 mg PO DAILY bipolar disorder 01/12/25
testosterone 1.62 % (20.25 mg/1.25 gram) transdermal gel packet (AndroGel) See Rx Instructions .Route .COMPLEX Hormonal Agent 01/12/25
cefazolin 10 gram solution for injection 2 g IV Q8H #0 ea 01/16/25
Home Medication Changes
cefazolin 10 gram solution for injection 2 g IV Q8H #0 ea 01/16/25
Pending Results: No
--- NOTE | 2025-01-17 12:51 | W.PN.ID1 ---
Date of Service
Date of Service: January 17, 2025
Today's Communication
Continue antibiotics.
Assessment / Plan
Left olecranon osteomyelitis and abscess
- s/p I&D / debridement 01/13/25
Left arm cellulitis
Elevated CRP (with normal ESR)
Hx bipolar disease
Recommendations:
01/13/25 s/p OR I+D of large collection of purulence posterior to the olecranon and triceps tendon remnant; excisional debridement of nonviable bone and tendon remnant
OR cx: Staph aureus (MSSA)
Continue cefazolin 2g IV q8h for 6 weeks (through 02/24/2025)
Prescription given to Case management
PICC line placed.
Will follow in office in 3 weeks time. Following weekly BMP, CBC with differential, ESR and CRP.
����������������������������������������������������������
Chief Complaint
-: Other (left olecranon osteo)
Subjective / Review of Systems
Review of Systems: No Fever and No Chills
Vital Signs / Physical Exam
Vital Signs
Vital Signs
Temp Pulse Resp BP Pulse Ox
97.9 F 74 19 179/84 99
01/17/25 07:00 01/17/25 07:00 01/17/25 07:00 01/17/25 07:00 01/17/25 09:15
Physical Exam
Constitutional: No Acute Distress
Eyes: Sclera Anicteric
Cardiovascular: S1/S2; Negative S3/S4
Pulmonary: Clear and Non Labored
Gastrointestinal: Soft, Non Tender and Non Distended
Extremities: Edema (LUE); Negative Cyanosis
Musculoskeletal: Other (left elbow dressing dry)
Neurological: AO x 3
Objective Data
Lab Data
Lab Results
01/17/25 05:54
01/17/25 05:54
ESR 1 mm/hour (0-20) 01/11/25 23:19
Estimated Creat Clear 64 ml/min 01/17/25 05:54
Lactic Acid 1.2 mmol/L (0.7-2.0) 01/11/25 23:19
Total Bilirubin 0.6 mg/dl (0.2-1.3) 01/11/25 23:19
AST 88 U/L (17-59) H 01/11/25 23:19
ALT 40 U/L (0-50) 01/11/25 23:19
Alkaline Phosphatase 87 U/L (38-126) 01/11/25 23:19
C-Reactive Protein 183.70 mg/L (0.0-10.00) H 01/12/25 21:38
Most recent labs reviewed.
Micro Results:
01/11/25 23:19 Blood Culture - Final
Blood/Venous No Growth - Final Report
01/11/25 23:19 Blood Culture - Final
Blood/Venous No Growth - Final Report
01/13/25 16:15 Wound Culture - Preliminary
Elbow - Left S aureus-Methicillin Sensitive
Gram Stain - Preliminary
01/13/25 16:15 Anaerobic Culture - Preliminary
Elbow - Left NO ANAEROBES ISOLATED
01/12/25 10:30 Wound Culture - Final
Abscess S aureus-Methicillin Sensitive
Gram Stain - Final
01/12/25 10:01 Urine Culture - Final
Urine NO GROWTH
01/12/25 04:05 MRSA Screen - Final
Nose No Methicillin Resistant Staphylococcus aureus isolated.
01/13/25 MRI LUE:
1. COMPLETE RUPTURE of the DISTAL TRICEPS TENDON REPAIR from the olecranon attachment.
2. 5.0 cm ABSCESS posterior to the triceps tendon.
3. 2.7 cm ABSCESS posterior to the olecranon (extending anteriorly into the elbow joint).
4. 2.3 cm ABSCESS posterior to the proximal ulnar metaphysis.
5. ACUTE OSTEOMYELITIS of the OLECRANON.
6. SEPTIC ARTHRITIS of the left elbow.
[2025-01-17 12:52] VITALS: BP 139/90
--- NOTE | 2025-01-17 12:58 | PTCARENOTE ---
pt reports PRN [place] effective for pain control. tolerating diet, independent frequently ambulating in room and hallway, left arm jaison wrap c/d/i, vss, for discharge to home with his .
== END 2025-01-17 12:58 | disposition home or self-care (01) | DRG 854 ==
LOC: 3 WEST ACU 01:18
PROVIDERS: Internal Medicine; Nurse Practitioner Family; Radiology Diagnostic Radiology; ADMITTING PHYSICIAN Internal Medicine; ATTENDING PHYSICIAN Internal Medicine; CONSULT PHYSICIAN Internal Medicine Infectious Disease; CONSULT PHYSICIAN Orthopaedic Surgery; EMERGENCY PHYSICIAN Student in an Organized Health Care Education/Training Program; FAMILY PHYSICIAN Physician Assistant
PROC: 0PBL0ZZ Excision of Left Ulna, Open Approach (ICD-10-PCS; 2025-01-13)
PROC: 02HV33Z Insertion of Infusion Device into Superior Vena Cava, Percutaneous Approach (ICD-10-PCS; 2025-01-16)
DX: A41.9 Sepsis, unspecified organism (principal); L02.414 Cutaneous abscess of left upper limb; M86.18 Other acute osteomyelitis, other site; M00.022 Staphylococcal arthritis, left elbow; L03.114 Cellulitis of left upper limb; G89.29 Other chronic pain; M54.2 Cervicalgia; B95.61 Methicillin susceptible Staphylococcus aureus infection as the cause of diseases classified elsewhere; M54.9 Dorsalgia, unspecified; F31.9 Bipolar disorder, unspecified; S46.312A Strain of muscle, fascia and tendon of triceps, left arm, initial encounter; X58.XXXA Exposure to other specified factors, initial encounter; Y92.9 Unspecified place or not applicable; Z96.651 Presence of right artificial knee joint; Z88.5 Allergy status to narcotic agent
CPT/HCPCS: 71045; 73223; 80048; 80053; 81003; 81015; 82565; 83605; 85025; 85027; 85652; 86140; 87040; 87070; 87075; 87086; 87147; 87186; 87205; 93005; 93971; 96374; 99285; A9575

== ENCOUNTER 2025-02-24 15:18 | Emergency (ER) | payer MEDICARE, BC, SELFPAY ==
[2025-02-24 15:26] VITALS: BP 166/88
--- NOTE | 2025-02-24 15:46 | ED.GENMED ---
History of Present Illness
General
Chief Complaint: Skin Problem
Time Seen by Provider: 02/24/25 15:46
History of Present Illness
History of Present Illness:
FOCUSED PAST MEDICAL HISTORY
- Bipolar, high blood pressure
REVIEW OF OLD RECORDS
- The patient was admitted admitted with left olecranon osteomyelitis and abscess/left arm cellulitis for 6 days approximately 6 weeks ago. Records indicate that he was to have Ancef for 6 weeks ending today, February 24, 2025.
Note:
CHIEF COMPLAINT(S)
Recurrent infection at surgical site.
HISTORY OF PRESENT ILLNESS
The patient is a 69-year-old male with a past surgical history of tendon repair performed on April 13, 2023. Approximately two years later, a permanent suture surfaced, which acted as a nidus for a significant infection leading to hospitalization
about one month ago for six days. The infection extended to the bone. The patient was treated with intravenous vancomycin, which was later switched to daptomycin due to a methicillin-resistant Staphylococcus aureus (MRSA) infection. Surgical
intervention included the removal of the suture and abscess drainage.
The patient was under treatment with daptomycin via a peripherally inserted central catheter (PICC) line, with plans to remove the PICC line. However, last night, the patient noticed a recurrence of symptoms at the original site, with the
development of a small swelling and a visible bullseye appearance at the previous entry point. The patient described the area as not warm to touch and denied any fever but mentioned sweating the previous night.
The patient�s intravenous nurse advised against removing the PICC line due to the new symptoms and instructed the patient to seek further evaluation, including potential imaging. The patient later presented to the emergency department for assessment.
EXTERNAL RECORDS REVIEWED
The patient reported having had regular blood work as an outpatient with the last test conducted two days ago.
PHYSICAL EXAM
General: Alert, no acute distress.
Skin: Warm, dry, localized swelling at the surgical site without warmth.
Head: Normocephalic, atraumatic.
Neck: Supple, trachea midline.
Eyes, Ears, Nose, Mouth, and Throat: Oral mucosa moist.
Cardiovascular: Normal peripheral perfusion, No edema.
Respiratory: Respirations are non-labored.
Gastrointestinal: Abdomen nondistended.
Back: Normal range of motion, Normal alignment.
Musculoskeletal: Normal ROM, normal strength.
Neurological: Alert and oriented to person, place, time, and situation, No focal neurological deficit observed.
Psychiatric: Cooperative, appropriate mood & affect.
PROBLEM LIST
Acute: Recurrent infection at surgical site.
Chronic: None mentioned.
PLAN
1. Obtain an ultrasound of the affected site to evaluate for abscess or fluid accumulation.
2. Consult infectious disease specialist, possibly Dr. Lanier, to guide further management.
3. Consider repeat blood work to assess for inflammatory markers or infection.
4. Continue monitoring the surgical site for changes in symptoms or expansion of the swelling.
DIFFERENTIAL DIAGNOSIS
The differential diagnosis includes, in no particular order and is not limited to:
1. Recurrent abscess formation.
2. Chronic osteomyelitis.
3. Sinus tract formation.
4. Soft tissue infection.
5. Retained foreign body reaction.
6. Seroma at the surgical site.
7. Cellulitis.
8. Suture granuloma.
9. Fungal infection.
10. Reactive skin changes.
RADIOLOGY
- Soft tissue ultrasound obtained left upper extremity that shows some small fluid collections
LABS
- White count is 5.0, hemoglobin normal, CRP and sed rate normal
UPDATE
- I discussed extensively with infectious disease and Ortho. Dr. Hearn recommends discharge as the patient CRP and sed rate are both normal. Dr. Ignacio recommends that he can continue the antibiotics via PICC and she will ensure he follows
up with Dr. Rees as an outpatient.
SUMMARY OF ENCOUNTER
The patient was seen in the emergency department due to recurrent symptoms at a previous surgical site. There was concern for a potential recurring infection at the site, with the appearance of a small swelling and bullseye appearance. The patients
symptoms included sweating the previous night but no warmth at the site or fever. The patient was previously treated with daptomycin for MRSA, and removal of the PICC line, previously planned, was deferred due to these symptoms. Upon evaluation,
fluid collection was noted, but no evidence of infection was found as white blood cell count and inflammatory markers were within normal limits. The case was discussed with orthopedics and infectious disease specialists.
PLAN
1. Continue current antibiotics as prescribed via PICC line.
2. Monitor the surgical site for any changes in symptoms, particularly signs of infection such as warmth, increased swelling, and fever.
3. Consider follow-up with both orthopedic and infectious disease specialists as needed for ongoing care and management.
INDEPENDENT REVIEW OF LABS AND INTERPRETATION OF TESTS
My independent review of CBC indicates that the white blood cell count is normal, and inflammatory markers are also normal, indicating no active infection present.
MEDICAL DECISION MAKING
-Complexity of Data Reviewed: Chronic conditions affecting care included the potential for recurrent infection at the surgical site. The differential diagnosis included recurrent abscess formation, chronic osteomyelitis, sinus tract formation, soft
tissue infection, retained foreign body reaction, seroma, cellulitis, suture granuloma, fungal infection, and reactive skin changes.
-Data:
Category 3
Discussion of management with other healthcare providers including orthopedics and infectious disease specialists, who are in agreement for outpatient management.
-Risk:
Prescription drug management is ongoing with antibiotics requiring monitoring for potential recurrence of infection.
DIAGNOSIS
Fluid collection at surgical site, likely sterile (ICD-10: M89.8X9).
Sed rate, CRP, white count all normal. I am aware that the patient is on Ancef. I deferred disposition to both Ortho and infectious disease. Dr. Hearn recommends outpatient follow-up and recommends against admission. I feel this is a
reasonable plan. Dr. Hearn did agree to see the patient in follow-up.
Given the and patient's concern, Dr. Ignacio ended up speaking to the over the phone. She offered and recommended keeping the patient in the hospital for aspiration and possible MRI. The patient has refused this. She is trying to
arrange closer outpatient follow-up with his usual infectious disease specialist Dr. Rees.
Past History
Past History
ED Past Medical History: Other (Chronic neck and back pain)
Social History
Tobacco: Non-smoker
Drug: None
Phy Exam
Physical Exam
Physical Exam:
See HPI
Course
Orders/Labs/Results
Orders:
Orders
02/24/25 15:56
CR Chest Single View Urgent
Comment:
Reason For Exam: eval picc placement
Non Vasc Upper Ext Left US [US Non Vasc UPPER Ext LT] Urgent
Comment:
Reason For Exam: eval for abscess near elbow
02/24/25 16:15
Basic Metabolic Panel Urgent
C-Reactive Protein Urgent
Comment: ADD ON
Complete Blood Count/With Diff Urgent
Erythrocyte Sed Rate Urgent
Comment: ADD ON
Lactic Acid Q4H
Comment: CANCEL 2nd LACTIC ACID IF 1st LACTIC ACID IS LESS THAN 2
Blood Culture Q30M
SAKSHI Source: Blood/Venous
Specimen Description:
Blood Culture Q30M
SAKSHI Source: Blood/Venous
Specimen Description:
02/24/25 17:50
Add On- LAB Urgent
Tests Added?: cRP ESR
Abnormal Lab Results
02/24/25
16:15
Absolute Lymphs (auto) 0.6 L 10^3/uL
(1.2-3.4)
Immature Gran % 0.6 H %
(0-0.5)
Lymphocytes % 12.4 L %
(20.5-51.1)
Glucose 119 H mg/dl
(70-99)
02/24/25 16:15
02/24/25 16:15
Vital Signs
Initial and Last Documented VS:
Initial Vital Signs
Temp Pulse Resp BP Pulse Ox
36.6 C 95 20 166/88 98
02/24/25 15:26 02/24/25 15:26 02/24/25 15:26 02/24/25 15:26 02/24/25 15:26
Last Documented Vital Signs
Temp Pulse Resp BP Pulse Ox
36.6 C 95 20 158/88 98
02/24/25 15:26 02/24/25 15:26 02/24/25 15:26 02/24/25 19:19 02/24/25 15:48
*Pulse Oximetry
SaO2: 98
Oxygen Mode of Delivery: Room air
Patient hypoxic: no
*Critical Care Note
Total Time (30-74mins, 75-104mins- exclusive of procedures): Not Applicable
ED Attending Note
-
Portions of this chart may have been created with voice recognition software.� Occasional wrong word or��sound alike� substitutions may have occurred due to the inherent limitations of voice recognition software.
Discharge Plan
Departure
Patient Disposition: Home (Routine Discharge)
Date of Disposition: 02/24/25
Time of Disposition: 18:59
Patient with high blood pressure during this ER visit?: Yes
Discharge Problem:
Fluid collection (edema) in the arms, legs, hands and feet
Instructions: BLOOD PRESSURE
Prescriptions:
No Action
tizanidine 2 MG tablet
4 mg PO HS
methadone 10 MG tablet
10 mg PO DAILY
hydrocodone-acetaminophen [Randolph] 1 EACH tablet
1 ea PO QID
gabapentin 300 MG capsule
300 mg PO HS
amitriptyline 100 MG tablet
200 mg PO HS
vilazodone [Viibryd] 40 MG tablet
60 mg PO DAILY
testosterone [AndroGel] 1.62 % (20.25 mg/1.25 gram) Gel In Packet
See Rx Instructions .ROUTE .COMPLEX
Rx Instructions:
'4 pumps to skin daily'
Vraylar 1.5 mg Capsule
1.5 mg PO DAILY
cefazolin 10 gram Recon Soln
2 g IV Q8H Qty: 0 0RF
Referrals:
Noemí Pringle PA [Family Provider, General]
Activity Restrictions/Additional Instructions:
Your white blood cell count is normal. Your C-reactive protein and sed rate are both normal. The ultrasound shows 2 small fluid collections. I spoke to infectious disease and I also spoke to Dr. Hearn. Dr. Hearn said he would see you in
the office this week. I also recommend that you call Dr. Rees for follow-up this week as well. We will leave the PICC in for now. Dr. Ignacio (Dr. Rees's partner) recommends that you finish the antibiotics and then flush the line once a day
and she is going to asked Dr. Rees to get him into their office.
Interventions
Interventions:
*General Assessment Last Done: 02/24/25 15:26
Discharge Date and Time
Print Language: MALTESE
[2025-02-24 16:34] LABS: Hematocrit 43.1 % (39.0-52.0); Hemoglobin 14.6 g/dL (13.0-18.0); Mean Corp Hgb Conc. 33.9 g/dL (33.0-37.0); Mean Corpuscular Volume 90.5 fL (80.0-94.0); Nucleated Red Blood Cells % 0 % (-); Platelet Count 212 10^3/uL (130-400); Red Cell Dist. Width 13.3 % (11.5-14.5)
[2025-02-24 16:55] LABS: Blood Urea Nitrogen 20 mg/dl (9-20); Calcium 8.9 mg/dl (8.4-10.2); Carbon Dioxide 27 mmol/L (22-30); Chloride 104 mmol/L (98-107); Glucose 119 mg/dl (70-99); Potassium 4.3 mmol/L (3.5-5.1); Sodium 137 mmol/L (135-145); eGFR > 60.00
[2025-02-24 18:34] LABS: C-Reactive Protein < 5.00 mg/L (0.0-10.00)
[2025-02-24 19:19] VITALS: BP 158/88
== END 2025-02-24 20:12 | disposition home or self-care (01) ==
LOC: EMR 15:18
PROVIDERS: EMERGENCY PHYSICIAN Emergency Medicine; FAMILY PHYSICIAN Physician Assistant
DX: R60.0 Localized edema (principal); F31.9 Bipolar disorder, unspecified
CPT/HCPCS: 99284; 71045; 76882; 80048; 83605; 85025; 85652; 86140; 87040

== ENCOUNTER 2025-02-25 11:57 | Emergency (ER) | payer MEDICARE, BC, SELFPAY ==
[2025-02-25 11:59] VITALS: BP 153/84
--- NOTE | 2025-02-25 12:37 | ED.GENMED ---
History of Present Illness
<Kev Ghosh PA-C - Last Filed: 02/25/25 14:00>
General
Chief Complaint: Musculo-Skeletal Complaint
Time Seen by Provider: 02/25/25 12:17
History of Present Illness
History of Present Illness:
69-year-old male presents to the emergency for evaluation. Presents emergency department send complaints of anticoagulation as well as aspirin. History is notable for left elbow olecranon bursitis septic arthritis that required operative
collection. He noticed a lot of swelling in the past several days prompting an ER yesterday. He was recommended to be admitted for MRI and possible joint aspiration but he declined. He returns today insisting that he refuses to be admitted to the
hospital for further workup. He has no fevers. PICC line remains in the right upper extremity, he has no pain or swelling to the right upper extremity. His spouse is continuing to administer IV Ancef
Past History
<Kev Ghosh PA-C - Last Filed: 02/25/25 14:00>
Past History
ED Past Medical History: Other (Chronic neck and back pain)
Social History
Tobacco: Non-smoker
Drug: None
Review of Systems
<Kev Ghosh PA-C - Last Filed: 02/25/25 14:00>
Review of Systems
Allergies reviewed?: Yes
All Other Systems: ROS reviewed and negative except as documented in HPI and ROS
Phy Exam
<Kev Ghosh PA-C - Last Filed: 02/25/25 14:00>
Physical Exam
Physical Exam:
GEN: Well appearing, NAD, WDWN
HEENT: Oral mucosa moist, no scleral icterus
Cardiac: Regular rate
Lung: No respiratory distress, no tachypnea
MSK: Small fluctuant area inferior to the patient's surgical scar on the left elbow with erythema or warmth, nontender to palpation, free unrestricted left elbow range of motion observed. PICC line in the right upper extremity without erythema or
induration
Skin: Good color, no pallor or jaundice, no rashes
Neuro: AO x3, moves all extremities freely
Psych: Calm, cooperative
Course
<Kev Ghosh PA-C - Last Filed: 02/25/25 14:00>
Orders/Labs/Results
Orders:
Orders
02/25/25 13:30
INFECTIOUS DISEASE CONSULT Urgent
Consulting Provider: Merle Ignacio
Was physician already notified: Yes
Vital Signs
Initial and Last Documented VS:
Initial Vital Signs
Temp Pulse Resp BP Pulse Ox
98.3 F 108 18 153/84 98
02/25/25 11:59 02/25/25 11:59 02/25/25 11:59 02/25/25 11:59 02/25/25 11:59
Last Documented Vital Signs
Temp Pulse Resp BP Pulse Ox
98.3 F 108 18 153/84 98
02/25/25 11:59 02/25/25 11:59 02/25/25 11:59 02/25/25 11:59 02/25/25 12:37
<Juan Carlos Saul DO - Last Filed: 02/25/25 13:32>
Orders/Labs/Results
Orders:
Orders
02/25/25 13:30
INFECTIOUS DISEASE CONSULT Urgent
Consulting Provider: Merle Ignacio
Was physician already notified: Yes
Vital Signs
Initial and Last Documented VS:
Initial Vital Signs
Temp Pulse Resp BP Pulse Ox
98.3 F 108 18 153/84 98
02/25/25 11:59 02/25/25 11:59 02/25/25 11:59 02/25/25 11:59 02/25/25 11:59
Last Documented Vital Signs
Temp Pulse Resp BP Pulse Ox
98.3 F 108 18 153/84 98
02/25/25 11:59 02/25/25 11:59 02/25/25 11:59 02/25/25 11:59 02/25/25 12:37
<Kev Ghosh PA-C - Last Filed: 02/25/25 14:00>
MDM/Problems Addressed
MDM/Problems Addressed:
Patient was seen in conjunction with attending physician Dr. Saul and infectious disease specialist Dr. Ignacio. At this time patient is clinically stable with a clinical exam is not concerning for septic arthritis. He did have an ultrasound
yesterday showing fluid communicated with the joint however given his lack of pain and his unrestricted range of motion I find it unlikely that this represents septic arthritis. He is again refusing to be admitted to the hospital for further
treatment and is requesting urgent MRI. Feasible at this time and can reasonably done as an outpatient. I did write this at time of discharge for an outpatient aspiration of the elbow by interventional radiology with fluid culture and Gram stain
orders.
<Kev Ghosh PA-C - Last Filed: 02/25/25 14:00>
*Pulse Oximetry
SaO2: 98
Oxygen Mode of Delivery: Room air
Patient hypoxic: no
*Critical Care Note
Total Time (30-74mins, 75-104mins- exclusive of procedures): Not Applicable
ED Attending Note
<Kev Ghosh PA-C - Last Filed: 02/25/25 14:00>
-
Portions of this chart may have been created with voice recognition software.� Occasional wrong word or��sound alike� substitutions may have occurred due to the inherent limitations of voice recognition software.
<Juan Carlos Saul DO - Last Filed: 02/25/25 13:32>
ED Attending Note
Patient seen and examined by attending physician: Yes
I performed the substantive portion of visit, reviewed & personally made and approve the management plan that is documented in note by myself or AMILCAR.: Yes
ED Attending Note:
69-year-old male who again returns for concerns about swelling to the left elbow. Patient has had a history of infection and had 6 weeks of antibiotics. Had an ultrasound and workup performed yesterday and was advised on admission but the patient
refused. His labs including inflammatory markers were normal and the case was discussed with infectious disease and orthopedics yesterday. Patient returns with no new concerns. However given the ultrasound they spoke with infectious disease again
was advised to come back to consider other testing. The patient reports to me no pain at all. They just noticed some swelling. During history-taking he is flexing his elbow and drinking a soda without difficulty. Exam: Normal full range of
motion of the left elbow. There are palpable indurations noted to the posterior aspect of the area just distal to the olecranon process and a little more proximal to the olecranon process that are not fluctuant. There is no redness. There is no
drainage. There is a healed scar. Assessment and plan: Seen at bedside and case discussed with infectious disease. At this point there is certainly no clinical evidence for septic joint. Given his history, infectious disease may pursue an
outpatient arthrocentesis for further reassurance but infectious disease agrees that there is no clinical evidence of septic joint. Again the patient is clear and adamant that he does not want to be admitted to the hospital. This was all relayed
to his who is in agreement
Discharge Plan
Departure
Patient Disposition: Home (Routine Discharge)
Patient with high blood pressure during this ER visit?: No
Discharge Problem:
Fluid Collection Left Elbow
Prescriptions:
No Action
tizanidine 2 MG tablet
4 mg PO HS
methadone 10 MG tablet
10 mg PO DAILY
hydrocodone-acetaminophen [Raymore] 1 EACH tablet
1 ea PO QID
gabapentin 300 MG capsule
300 mg PO HS
amitriptyline 100 MG tablet
200 mg PO HS
vilazodone [Viibryd] 40 MG tablet
60 mg PO DAILY
testosterone [AndroGel] 1.62 % (20.25 mg/1.25 gram) Gel In Packet
See Rx Instructions .ROUTE .COMPLEX
Rx Instructions:
'4 pumps to skin daily'
Vraylar 1.5 mg Capsule
1.5 mg PO DAILY
cefazolin 10 gram Recon Soln
2 g IV Q8H Qty: 0 0RF
Referrals:
Melody Ghosh DO [Family Provider]
Terrance Hamilton DO [Active, Radiology]
Referral Note: Call Thursday for Aspiration of Elbow. You will need to provide the written order I have given you
Activity Restrictions/Additional Instructions:
Contact interventional radiology on Thursday for an outpatient elbow aspiration. You will need to provide the written order I have given you. Follow-up with infectious disease and orthopedics regarding test results
Interventions
Interventions:
*Risk Screen - Suicide Last Done: 02/25/25 11:59
*General Assessment Last Done: 02/25/25 11:59
*Neglect/Abuse Screening Last Done: 02/25/25 11:59
*Nursing Disposition Last Done: 02/25/25 13:42
ED-Musculoskeletal Assessment Last Done: 02/25/25 13:29
Discharge Date and Time
Discharge Date/Time: 02/25/25 13:42
Print Language: NORTHER[place] IRISH
--- NOTE | 2025-02-25 13:30 | CON.ID ---
Consultation
-
Date/Time Consultation Requested: 02/25/25 13:31
Date/Time Consultation Performed: 02/25/25 13:31
Requesting Provider: Dr Saul
Performing Provider: Dr Ignacio
Reason for Consultation: swelling of the L elbow
Chief Complaint / Past History
Chief Complaint
swelling of the left elbow
History of Present Illness
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 He first tore his triceps September 2022 and went for repair in January 2023 however he had hypotension during the procedure and later returned
for deinitive surgery Mar 2023 at [facility]. July 2023 a stuture seemed to come out of the elbow. He managed edema of the elbow with GILMA wraps. Then 01/12/25 he developed increased swelling of the area and purulent drainage. No fevers or chills.
He was taken to the OR 01/13 and sutures were identified and removed, anchor sites debrided, in conversation with Dr Mckeon he is confident that the foreign material has been removed. OR cultures grew MSSA and he was started on a 6 week course
of IV cefazolin. He was due for PICC line removal thursday however a slight collection had developed inferior to the elbow, he attempted to reach out to our office but was not able to reach a physician. He presented to the ER where last night an US
was done and read as two fluid collections 1.0 x 0.8 x 2.1 cm in size and the other fluid collection measures 2.1 x 0.3 x 2.0 cm in size 'consistent with septic arthritis.' However the team noted no erythema, warmth, tenderness or drainage and that
the elbow had full range of motion. No fevers or sweats. I was contacted and initially recommended admission for arthrocentesis and considered MRI at that time. He refused admission and left the ER. He now represents being willing to get the
MRI. I evaluated the patients elbow and also found very minimal discrete fluid collection without warmth, tenderness and only tiny flucutance. No warmth or drainage from the site.
Past History
Additional Past Medical History:
Bipolar disease
Additional Past Surgical History:
Cervical and lumbar laminectomy
Left tricep repair
Right TKA
Right ankle surgery
Allergy History:
hydromorphone (From Dilaudid) Allergy (Verified 02/24/25 15:26)
Unknown
Medications Reviewed: Yes
Social History
Tobacco: Non-Smoker
Alcohol: Occasional
Drug: None
Family History
Family History: Not Pertinent
Review of Systems
Review of Systems
General: Negative Fever or Chills
All systems: All other systems were reviewed and were negative
Vital Signs
Temp Pulse Resp BP Pulse Ox
98.3 F 108 18 153/84 98
02/25/25 11:59 02/25/25 11:59 02/25/25 11:59 02/25/25 11:59 02/25/25 12:37
Physical Exam
Physical Exam
Constitutional: No Acute Distress
Cardiovascular: Regular Rate and S1/S2; Negative Murmur or Rub
Pulmonary: Clear and Symmetric; Negative Wheezes, Rales or Rhonchi
Gastrointestinal: Soft, Non Tender, Non Distended and Normal Bowel Sounds
Extremities: Other (full range of motion, no erythema, no warmth, no tenderness; minimal palpable fluctuance)
Skin: Warm and Dry; Negative Rash or Jaundice
Lines: PICC (in place no erythema warmth or drainage)
Assessment / Plan
Resolved Osteomyelitis of the Olecranon
- I do not believe that the trace fluid collections clinically reflect a septic joint or relapse of osteomyelitis.
- to distinguish if there is any relapse an arthrocentesis has been requested with IR for cell count, culture, crystals
- doubt that repeat MRI will be definitive and it could be misleading given the benign clinical exam.
- PICC can be maintained, they will complete the antibiotics they have at home and then flush the line once daily
- case discussed at length with Dr Hearn and Dr Saul who are in agreement with the plan
== END 2025-02-25 13:42 | disposition home or self-care (01) ==
LOC: EMR 11:57
PROVIDERS: CONSULT PHYSICIAN Student in an Organized Health Care Education/Training Program; EMERGENCY PHYSICIAN Emergency Medicine; FAMILY PHYSICIAN Obstetrics & Gynecology
DX: M25.422 Effusion, left elbow (principal); Z88.5 Allergy status to narcotic agent; G89.29 Other chronic pain; Z86.19 Personal history of other infectious and parasitic diseases; Z95.828 Presence of other vascular implants and grafts
CPT/HCPCS: 99283